=== PATIENT | female | born 1930 | race Caucasian/White ===

== ENCOUNTER 2018-04-27 21:27 | Inpatient (IN) ==
[2018-04-27 21:55] LABS: Bilirubin,Urine Negative (Negative); Blood,Urine Negative (Negative); Clarity,Urine Clear (Clear); Color,Urine Yellow (Yellow); Glucose,Urine (UA) Normal (Normal); Ketones,Urine Negative (Negative); Leukocyte Esterase,Urine Negative (Negative); Nitrite,Urine Negative (Negative); Protein,Urine Trace mg/dL (Neg-Trace); Specific Gravity,Urine 1.013 (1.010-1.025); Urobilinogen,Urine Normal (Normal)
[2018-04-27 21:58] LABS: Bacteria,Urine None Seen per hpf (None-Few); Hyaline Casts,Urine None Seen per lpf (None-Few); RBC,Urine 0-3 per hpf (0-3); Squamous Epithelial Cell,Urine Few per lpf (None-Few); WBC,Urine 0-3 per hpf (0-3)
[2018-04-27 22:11] LABS: Basophils % 0.1 %; Eosinophils # 0.1 K/mcL (0.0-0.6); Eosinophils % 0.3 %; Hematocrit 31.9 % (35.3-44.9); Hemoglobin 10.4 g/dL (11.5-15.4); Immature Granulocytes % 0.5 % (0-4); Lymphocytes # 1.3 K/mcL (0.6-4.6); Mean Corpuscular HGB Conc 32.6 g/dL (31.6-35.5); Mean Corpuscular Hemoglobin 30.3 pg (28.0-33.3); Monocytes # 1.2 K/mcL (0.0-1.3); Monocytes % 6.7 %; Neutrophils # 15.7 K/mcL (1.6-8.9); Platelet Count 478 K/mcL (140-400); Red Blood Count 3.43 M/mcL (3.82-4.97); Red Cell Distribution Width 22.5 % (11.5-14.5); Segmented Neutrophils % 85.4 %
[2018-04-27] MEDS ORDERED: 0.9 % Sodium Chloride 500 ML IVC ONE (22:17)
[2018-04-27 22:18] LABS: INR 1.1; Prothrombin Time 11.9 Seconds (9.4-12.1)
[2018-04-27 22:34] LABS: Alanine Aminotransferase 22 Units/L (7-52); Albumin 3.6 g/dL (3.5-5.7); Albumin/Globulin Ratio 1.2 (1.1-2.2); Alkaline Phosphatase 95 Units/L (34-104); Aspartate Amino Transferase 34 Units/L (13-39); BUN/Creatinine Ratio 31 (6-26); Bilirubin,Total 0.3 mg/dL (0.3-1.0); Blood Urea Nitrogen 23 mg/dL (8-23); Calcium 9.1 mg/dL (8.6-10.3); Carbon Dioxide 30 mEq/L (23-29); Chloride 93 mEq/L (98-107); Creatine Kinase 169 Units/L (30-223); Globulin 2.9 g/dL (2.4-3.5); Glucose 86 mg/dL (70-105); Magnesium 1.7 mg/dL (1.6-2.6); Osmolality,Calculated 271 (280-300); Potassium 3.7 mEq/L (3.5-5.1); Sodium 129 mEq/L (136-145); Total Protein 6.5 g/dL (6.4-8.9); Troponin I 0.03 ng/mL (< 0.04); eGFR For Non-African Americans > 60 (> 60)
--- NOTE | 2018-04-27 23:35 | Emergency Department Note ---
Disposition Clinical Impression: Altered mental status Qualifiers: Altered mental status type: unspecified Qualified Code(s): R41.82 - Altered mental status, unspecified Disposition: Admitted As Inpatient Condition: Fair Altered Mental Status HPI - General Chief Complaint: ED Altered Mental Status Stated Complaint: weakness Time Seen by Provider: 04/27/18 21:34 Source: patient, EMS Mode of arrival: EMS Limitations: altered mental status Nursing Notes Reviewed: Yes Vital Signs Reviewed: Yes - History of Present Illness HPI Narrative: History source: Patient is unable to provide information for this note. Info was gathered from the patient, hospital staff, the patient's chart. History limitations: Patient condition Medications: As per nurses note 87-year-old female presents emergency department for evaluation of weakness and altered mental status. Patient apparently called EMS for weakness however EMS crew noted that they were unable to understand much of what she was saying. I am unable to obtain a full history from this patient, she is awake and crying out in pain stating "help me, help me" she is unable to localize her pain or describe the onset of her symptoms. Patient has a laceration to the right anterior distal lower extremity from a fall within the past 2 weeks. Patient was evaluated at an urgent care after the fall and had repair of a skin tear. Patient has swelling and ecchymosis to the bilateral lower extremities however there is not evidence of significant erythema or purulent discharge from the laceration site. - Related Data Home Medications Medication Instructions Recorded Confirmed Acetaminophen [Arthritis Pain 650 mg PO TID PRN 10/19/17 04/05/18 Relief] Ascorbic Acid [Vitamin C] 1,000 mg PO DAILY 11/19/17 04/05/18 Meloxicam [Mobic] 7.5 mg PO DAILY 02/22/18 04/05/18 Previous Rx's Medication Instructions Recorded Handicap Placard 1 each .ROUTE AD #1 each 03/07/16 Docusate Sodium [Colace] 100 mg PO BID #60 capsule 01/26/17 Polyethylene Glycol 3350 [MiraLAX 1 scoop PO DAILY #510 gm 01/06/18 Powder Bulk 17.9 Oz] Folic Acid 1 mg PO DAILY #30 tablet 01/13/18 Ondansetron HCl [Zofran] 4 mg PO Q8HR PRN #90 tab 01/13/18 Prochlorperazine Maleate 10 mg PO Q8HR PRN #90 tablet 01/13/18 [Compazine] Megestrol Acetate [Megace] 800 mg PO DAILY #200 mls 02/08/18 Sennosides [Senna] 8.6 mg PO BID #60 tablet 02/22/18 Levothyroxine [Synthroid] 125 mcg PO DAILY@0630 #90 tablet 03/04/18 Dexamethasone [Decadron] 4 mg PO BID #36 tab 04/05/18 Amitriptyline HCl 100 mg PO HS #30 tablet 04/20/18 OxyCODONE/APAP 5/325 [Percocet 1 each PO Q6HR PRN 30 Days #120 04/20/18 5/325 MG] tablet diazePAM [Valium] 5 mg PO HS PRN 30 Days #30 tablet 04/20/18 Allergies Allergy/AdvReac Type Severity Reaction Status Date / Time Sulfa (Sulfonamide Allergy Rash Verified 04/08/18 10:48 Antibiotics) All systems ED: reviewed and negative except as stated. Limitations: ROS unobtainable due to patients medical condition Past Medical History - Past Medical History Attestation: Yes The following information was validated with the patient. [facility] Narrative: General: Alert and crying out in pain in the bed Skin: Warm, dry, intact Head: Normocephalic and atraumatic Neck: Supple, trachea midline and no tenderness Cardiovascular: RRR, no murmur, normal perfusion Respiratory: CTAB, no wheezing, cough, or respiratory distress Musculoskeletal: Normal strength, no tenderness, swelling or deformity GI: Soft, nontender, nondistended. Bowel sounds present Neuro: A&O to person, place, time and situation. No focal deficits noted on exam Psychiatric: cooperative and appropriate mood and affect. Medical history: Reports: cancer Surgical history: Reports: coronary bypass (CABG), other Psychiatric history: Reports: anxiety, depression - Social History Smoking Status: Never smoker Smokeless Tobacco Status: No Alcohol use: Reports: none Drug use: Reports: none Physical Exam - General Limitations: no limitations General appearance: alert, in no apparent distress Course Vital Signs Temperature 97.9 F 04/27/18 21:31 Pulse Rate 101 04/27/18 21:31 Respiratory Rate 20 04/27/18 21:31 Blood Pressure 181/85 04/27/18 21:31 O2 Sat by Pulse Oximetry 100 04/27/18 21:31 Temperature 97.9 F 04/27/18 21:31 Pulse Rate 101 04/28/18 00:11 Respiratory Rate 18 04/28/18 00:11 Blood Pressure 176/90 04/28/18 00:11 O2 Sat by Pulse Oximetry 97 04/28/18 00:11 Oxygen Delivery Oxygen Delivery Room Air Altered Mental Status - Medical Records Medical records reviewed: Yes I reviewed the patient's medical records. - Lab Data Lab results reviewed: Yes I reviewed the patient's lab results. Result diagrams: 04/27/18 21:58 04/27/18 21:58 Lab Results 04/27/18 04/27/18 04/27/18 Range/Units 21:45 21:58 21:58 WBC 18.3 H (4.3-11.1) K/mcL RBC 3.43 L (3.82-4.97) M/mcL Hgb 10.4 L (11.5-15.4) g/dL Hct 31.9 L (35.3-44.9) % MCV 93.0 (83.0-100.0) fL MCH 30.3 (28.0-33.3) pg MCHC 32.6 (31.6-35.5) g/dL RDW 22.5 H (11.5-14.5) % Plt Count 478 H (140-400) K/mcL MPV 9.0 L (9.4-12.4) fL Immature Gran % 0.5 (0-4) % Seg Neutrophils % 85.4 % Lymphocytes % 7.0 % Monocytes % 6.7 % Eosinophils % 0.3 % Basophils % 0.1 % Neutrophils # 15.7 H (1.6-8.9) K/mcL Lymphocytes # 1.3 (0.6-4.6) K/mcL Monocytes # 1.2 (0.0-1.3) K/mcL Eosinophils # 0.1 (0.0-0.6) K/mcL Basophils # 0.0 (0.0-0.2) K/mcL PT 11.9 (9.4-12.1) Seconds INR 1.1 Sodium (136-145) mEq/L Potassium (3.5-5.1) mEq/L Chloride (98-107) mEq/L Carbon Dioxide (23-29) mEq/L BUN (8-23) mg/dL Creatinine (0.60-1.20) mg/dL Est GFR ( Amer) (> 60) Est GFR (Non-Af Amer) (> 60) BUN/Creatinine Ratio (6-26) Glucose (70-105) mg/dL Calculated Osmolality (280-300) Lactic Acid (0.5-2.2) mmol/L Calcium (8.6-10.3) mg/dL Magnesium (1.6-2.6) mg/dL Total Bilirubin (0.3-1.0) mg/dL AST (13-39) Units/L ALT (7-52) Units/L Alkaline Phosphatase (34-104) Units/L Creatine Kinase (30-223) Units/L Troponin I (< 0.04) ng/mL Serum Total Protein (6.4-8.9) g/dL Albumin (3.5-5.7) g/dL Globulin (2.4-3.5) g/dL Albumin/Globulin Ratio (1.1-2.2) TSH (0.340-5.600) mcIU/mL Urine Color Yellow (Yellow) Urine Clarity Clear (Clear) Urine pH 6.0 (5.0-8.0) pH Units Ur Specific [place] 1.013 (1.010-1.025) Urine Protein Trace (Neg-Trace) mg/dL Urine Glucose (UA) Normal (Normal) mg/dL Urine Ketones Negative (Negative) mg/dL Urine Blood Negative (Negative) Urine Nitrite Negative (Negative) Urine Bilirubin Negative (Negative) Urine Urobilinogen Normal (Normal) mg/dL Ur Leukocyte Esterase Negative (Negative) Urine Microscopic RBC 0-3 (0-3) per hpf Urine Microscopic WBC 0-3 (0-3) per hpf Ur Squamous Epith Cells Few (None-Few) per lpf Urine Bacteria None Seen (None-Few) per hpf Hyaline Casts None Seen (None-Few) per lpf Ur Culture Indicated? NO (NO) 04/27/18 04/27/18 Range/Units 21:58 21:58 WBC (4.3-11.1) K/mcL RBC (3.82-4.97) M/mcL Hgb (11.5-15.4) g/dL Hct (35.3-44.9) % MCV (83.0-100.0) fL MCH (28.0-33.3) pg MCHC (31.6-35.5) g/dL RDW (11.5-14.5) % Plt Count (140-400) K/mcL MPV (9.4-12.4) fL Immature Gran % (0-4) % Seg Neutrophils % % Lymphocytes % % Monocytes % % Eosinophils % % Basophils % % Neutrophils # (1.6-8.9) K/mcL Lymphocytes # (0.6-4.6) K/mcL Monocytes # (0.0-1.3) K/mcL Eosinophils # (0.0-0.6) K/mcL Basophils # (0.0-0.2) K/mcL PT (9.4-12.1) Seconds INR Sodium 129 L (136-145) mEq/L Potassium 3.7 (3.5-5.1) mEq/L Chloride 93 L (98-107) mEq/L Carbon Dioxide 30 H (23-29) mEq/L BUN 23 (8-23) mg/dL Creatinine 0.74 (0.60-1.20) mg/dL Est GFR ( Amer) > 60 (> 60) Est GFR (Non-Af Amer) > 60 (> 60) BUN/Creatinine Ratio 31 H (6-26) Glucose 86 (70-105) mg/dL Calculated Osmolality 271 L (280-300) Lactic Acid 0.6 (0.5-2.2) mmol/L Calcium 9.1 (8.6-10.3) mg/dL Magnesium 1.7 (1.6-2.6) mg/dL Total Bilirubin 0.3 (0.3-1.0) mg/dL AST 34 (13-39) Units/L ALT 22 (7-52) Units/L Alkaline Phosphatase 95 (34-104) Units/L Creatine Kinase 169 (30-223) Units/L Troponin I 0.03 (< 0.04) ng/mL Serum Total Protein 6.5 (6.4-8.9) g/dL Albumin 3.6 (3.5-5.7) g/dL Globulin 2.9 (2.4-3.5) g/dL Albumin/Globulin Ratio 1.2 (1.1-2.2) TSH 7.311 H (0.340-5.600) mcIU/mL Urine Color (Yellow) Urine Clarity (Clear) Urine pH (5.0-8.0) pH Units Ur Specific [place] (1.010-1.025) Urine Protein (Neg-Trace) mg/dL Urine Glucose (UA) (Normal) mg/dL Urine Ketones (Negative) mg/dL Urine Blood (Negative) Urine Nitrite (Negative) Urine Bilirubin (Negative) Urine Urobilinogen (Normal) mg/dL Ur Leukocyte Esterase (Negative) Urine Microscopic RBC (0-3) per hpf Urine Microscopic WBC (0-3) per hpf Ur Squamous Epith Cells (None-Few) per lpf Urine Bacteria (None-Few) per hpf Hyaline Casts (None-Few) per lpf Ur Culture Indicated? (NO) - Radiology Data Radiology results reviewed: Yes I reviewed the patient's radiology results. - EKG Data EKG attestation: Yes I reviewed and interpreted this EKG. EKG results narrative: EKG showed sinus tachycardia with a rate of 100 without evidence of STEMI. TPA Checklist - LKW: 3-4.5 hrs Add. Warnings/Precautions Patient/family understanding: The patient/family members have been counseled and understood the risk, benefit , and alternatives of treatment.
[2018-04-28 00:14] LABS: Thyroid Stimulating Hormone 7.311 mcIU/mL (0.340-5.600)
[2018-04-28] MEDS ORDERED: Naloxone 0.4 MG/ML INJ IVP PRN (01:59)
[2018-04-28] MEDS ORDERED: diazePAM 5 MG TABLET PO PRN (02:03)
--- NOTE | 2018-04-28 02:27 | Internal Med History&Physical ---
Date of Encounter: 04/28/18 Time of Encounter: 02:16 Internal Medicine - H&P: HPI Chief complaint: pain Admitted From: Home Plans for Post Hospital Care: Home History of present illness: Ms. Bennett is a 87 year old female with hx of metastatic lung cancer on chemotherapy, alzheimers, presents to hospital with cc of pain. Patient called 911 herself, but could not be understood so EMS was dispatched. Patient was brought to [place] ER who report she was altered and only said "help me, help me" . When I evaluated the patient she was alert oriented x3 and answering questions appropriately although tangential at times and calm. Patient reports headache, bilateral shoulder pain, and abdominal pain for the last 2 years. She follows a pain speicalist in [place]. She reports her pain has not worsened. She reports sob, cough, LE swelling. Patient denies fever, chills, fall, double vision, eye pain, ear pain, vertigo, sputum production, sick contacts, chest pain, palpitaitons, N/V/D, hematochezia, melana, dysuria, urinary frequency, LE weakness, numbness, tingling, anxiety, depression. She reports skin tear on LLE after fall few weeks ago that required stiches in march 2018. She drinks 1-2L of tea a day in addition to water. 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 Last treatment was 04/05. Past Med Surg Social Fam HX - Past Medical History Medical history: cancer, dementia, glaucoma, hypertension, osteoporosis, RA, renal disease Additional medical history: FIBROMYALGIA Psychiatric history: anxiety, depression - Past Surgical History Surgical History: coronary bypass (CABG), other Additional surgical history: bowel sx, left kidney removed, - Social History Smoking Status: Never smoker Smokeless Tobacco Status: No Alcohol use: none Drug use: none - Family History Mother History Unknown: Yes Internal Medicine - H&P: Meds Handicap Placard 1 each .ROUTE AD #1 each 03/07/16 [Rx] Docusate Sodium [Colace] 100 mg PO BID #60 capsule 01/26/17 [Rx] Acetaminophen [Arthritis Pain Relief] 650 mg PO TID PRN 10/19/17 [History] Ascorbic Acid [Vitamin C] 1,000 mg PO DAILY 11/19/17 [History] Polyethylene Glycol 3350 [MiraLAX Powder Bulk 17.9 Oz] 1 scoop PO DAILY #510 gm 01/06/18 [Rx] Folic Acid 1 mg PO DAILY #30 tablet 01/13/18 [Rx] Ondansetron HCl [Zofran] 4 mg PO Q8HR PRN #90 tab 01/13/18 [Rx] Prochlorperazine Maleate [Compazine] 10 mg PO Q8HR PRN #90 tablet 01/13/18 [Rx] Megestrol Acetate [Megace] 800 mg PO DAILY #200 mls 02/08/18 [Rx] Meloxicam [Mobic] 7.5 mg PO DAILY 02/22/18 [History] Sennosides [Senna] 8.6 mg PO BID #60 tablet 02/22/18 [Rx] Levothyroxine [Synthroid] 125 mcg PO DAILY@0630 #90 tablet 03/04/18 [Rx] Dexamethasone [Decadron] 4 mg PO BID #36 tab 04/05/18 [Rx] Amitriptyline HCl 100 mg PO HS #30 tablet 04/20/18 [Rx] OxyCODONE/APAP 5/325 [Percocet 5/325 MG] 1 each PO Q6HR PRN 30 Days #120 tablet 04/20/18 [Rx] diazePAM [Valium] 5 mg PO HS PRN 30 Days #30 tablet 04/20/18 [Rx] 3 Allergy/AdvReac Type Severity Reaction Status Date / Time Sulfa (Sulfonamide Allergy Rash Verified 04/08/18 10:48 Antibiotics) All Systems PM: A 10-system review of systems was performed and is negative for pertinent findings except as documented above in the HPI. Review of systems: as per HPI - Constitutional Vitals: Temp Pulse Resp BP Pulse Ox 97.8 F 100 16 176/87 96 04/28/18 01:10 04/28/18 01:10 04/28/18 01:10 04/28/18 01:10 04/28/18 01:10 Exam: General: pleasant, without distress HEENT: Head atraumatic, normocephalic, EOMI, PERRL, absent ear discharge or trauma, Moist Mucous Membranes, uvula midline Neck: nontender to palpation, absent lymphadenopathy, Cardiovascualr: sinus tachycardia no murmur, absent gallops or rubs, 2+ pedal edema, radial pulses 2 out of 4 Lungs: b/l basilar crackles, right lobe expritory wheezing, left upper lobe ronchi, not in respiratory distress Abdomen: Soft nontender, nondistended positive bowel sounds, absent hepatomegaly large midline scar Skin: healing right LE wound (dry with stiches) absent rash, absent open wounds and nodules MSK: absent clubbing, cyanosis, joints without swelling Neuro: Cranial nerves II through XII intact, UE and LE sensation equal bilaterally, UE and LEstrength 4/5, alert oriented 3, Psych: tangential, anxious Internal Med - H&P Results - Labs CBC & Chem 7: 04/27/18 21:58 04/27/18 21:58 - Assessment and plan (1) CHF exacerbation Current Visit: Yes Status: Acute Assessment and plan: acute chf exacerbation 2nd to increased fluid intake patient drinks 1-2L of tea with additional water has b/l LE edema 2+ and bibasilar crackles echocardiogram 03/2016 LVEF 50% with mild diastolic dysfunction patient is not on diuretics at home Plan: IV lasix, strict I/Os, echocardiogram, cardiac diet, BMP Qualifiers: Heart failure type: diastolic Qualified Code(s): I50.33 - Acute on chronic diastolic (congestive) heart failure (2) Hypothyroidism Current Visit: Yes Status: Chronic Assessment and plan: hx of hypothyroidism current ths is 7.311 start 137mcg levothyroxine (increase from home dose) follow up with pcp. Qualifiers: Hypothyroidism type: unspecified Qualified Code(s): E03.9 - Hypothyroidism , unspecified (3) DVT prophylaxis Current Visit: Yes Status: Acute Assessment and plan: heparin sq (4) Adenocarcinoma, lung Current Visit: Yes Status: Acute Assessment and plan: recurrent adenocarcinoma of lung with met to adrenal gland s/p radiation on chemotherapy followup with oncology Qualifiers: Laterality: left Qualified Code(s): C34.92 - Malignant neoplasm of unspecified part of left bronchus or lung (5) Leukocytosis Current Visit: Yes Status: Acute Assessment and plan: WBC 18.3 unclear etiology predominantly neutrophillic no evidence of pna on exam/cxr urinalysis no signs of UTI skin does not show signs of infection afebrile patient was on dexamethasone which was started by Oncology on 04/05 for 18 days blood cultures sent will repeat cbc and hold antibiotics as no source is found. Qualifiers: Leukocytosis type: unspecified Qualified Code(s): D72.829 - Elevated white blood cell count, unspecified - Time Spent With Patient Total time spent is greater than 50% in coordination of care (as documented) at patient's floor/unit and/or counseling patient:
[2018-04-28] MEDS: Furosemide 20 MG/2 ML VIAL IVP SCH ×2 (03:17→18:05)
[2018-04-28 04:55] LABS: Basophils % 0.1 %; Eosinophils # 0.1 K/mcL (0.0-0.6); Eosinophils % 0.7 %; Hematocrit 29.3 % (35.3-44.9); Hemoglobin 9.4 g/dL (11.5-15.4); Immature Granulocytes % 0.4 % (0-4); Lymphocytes # 1.4 K/mcL (0.6-4.6); Lymphocytes % 9.4 %; Mean Corpuscular HGB Conc 32.1 g/dL (31.6-35.5); Mean Corpuscular Hemoglobin 29.8 pg (28.0-33.3); Mean Platelet Volume 9.7 fL (9.4-12.4); Monocytes # 1.1 K/mcL (0.0-1.3); Monocytes % 7.1 %; Neutrophils # 12.2 K/mcL (1.6-8.9); Platelet Count 455 K/mcL (140-400); Red Blood Count 3.15 M/mcL (3.82-4.97); Red Cell Distribution Width 22.5 % (11.5-14.5); Segmented Neutrophils % 82.3 %
[2018-04-28 05:20] LABS: BUN/Creatinine Ratio 31 (6-26); Blood Urea Nitrogen 18 mg/dL (8-23); Calcium 8.7 mg/dL (8.6-10.3); Carbon Dioxide 28 mEq/L (23-29); Chloride 97 mEq/L (98-107); Glucose 80 mg/dL (70-105); Osmolality,Calculated 275 (280-300); Potassium 3.7 mEq/L (3.5-5.1); Sodium 132 mEq/L (136-145); eGFR For Non-African Americans > 60 (> 60)
[2018-04-28] MEDS: *HR* Heparin 5,000 UNIT/ML VIAL SQ SCH ×3 (06:19→20:41)
[2018-04-28] MEDS: Sennosides 8.6 MG TABLET PO SCH ×2 (10:25→20:41)
[2018-04-28] MEDS: Megestrol Acetate 400 MG/10 ML UDC PO SCH (10:25)
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
[2018-04-28] MEDS: *HR* OxyCODONE/APAP 5/325 TABLET PO PRN (15:21)
--- NOTE | 2018-04-28 17:52 | Electrocardiograph Report ---
[address] [place] [address] Test Date: 2018-04-27 Pat Name: Kati Bennett Department: [id number] Room: 3B11 Gender: F Compensation Vice President: : 1930 Requested By: José Miguel Maldonado Order Number: [id number] Reading MD: Jun Angeles Measurements Intervals [place] Rate: 100 P: 96 RI: 159 QRS: 59 QRSD: 89 T: 87 QT: 346 QTc: 447 Interpretive Statements Sinus tachycardia Ventricular premature complex Left ventricular hypertrophy Nonspecific T abnormalities, lateral leads Electronically Signed On 04-28-2018 17:50:36 EDT by Jun Angeles
[2018-04-29] MEDS: *HR* Heparin 5,000 UNIT/ML VIAL SQ SCH ×3 (06:23→21:17)
[2018-04-29 06:28] LABS: Basophils % 0.1 %; Eosinophils # 0.1 K/mcL (0.0-0.6); Hematocrit 30.1 % (35.3-44.9); Hemoglobin 9.6 g/dL (11.5-15.4); Immature Granulocytes % 0.4 % (0-4); Lymphocytes % 10.2 %; Mean Corpuscular HGB Conc 31.9 g/dL (31.6-35.5); Mean Corpuscular Hemoglobin 29.8 pg (28.0-33.3); Mean Corpuscular Volume 93.5 fL (83.0-100.0); Mean Platelet Volume 9.3 fL (9.4-12.4); Monocytes # 0.7 K/mcL (0.0-1.3); Monocytes % 7.6 %; Neutrophils # 7.8 K/mcL (1.6-8.9); Platelet Count 415 K/mcL (140-400); Red Blood Count 3.22 M/mcL (3.82-4.97); Red Cell Distribution Width 22.9 % (11.5-14.5); Segmented Neutrophils % 80.7 %
[2018-04-29 06:46] LABS: BUN/Creatinine Ratio 34 (6-26); Blood Urea Nitrogen 21 mg/dL (8-23); Calcium 8.4 mg/dL (8.6-10.3); Carbon Dioxide 30 mEq/L (23-29); Chloride 97 mEq/L (98-107); Glucose 88 mg/dL (70-105); Osmolality,Calculated 278 (280-300); Potassium 3.9 mEq/L (3.5-5.1); Sodium 133 mEq/L (136-145); eGFR For Non-African Americans > 60 (> 60)
--- NOTE | 2018-04-29 07:57 | Internal Med Progress Note ---
Hospitalist Progress Note - Encounter Date of Encounter: 04/29/18 Time of Encounter: 07:55 - Subjective Interval History: Patient seen and examined at bedside, She voices concern about going home to her cat. She is calling on the phone but she can't remeber numbers. PT/OT recommending SNF placement. inpatient services director consulted. - Exam Vitals: Temp Pulse Resp BP Pulse Ox 97.6 F 82 16 131/75 94 04/29/18 07:11 04/29/18 07:11 04/29/18 07:11 04/29/18 07:11 04/29/18 07:11 Exam: General: pleasant, without distress oreiented to name and place HEENT: Head atraumatic, normocephalic, EOMI, PERRL, absent ear discharge or trauma, Moist Mucous Membranes, uvula midline Neck: nontender to palpation, absent lymphadenopathy, Cardiovascualr: sinus tachycardia no murmur, absent gallops or rubs, 2+ pedal edema, radial pulses 2 out of 4 Lungs: b/l basilar crackles, right lobe expritory wheezing, left upper lobe ronchi, not in respiratory distress Abdomen: Soft nontender, nondistended positive bowel sounds, absent hepatomegaly large midline scar Skin: healing right LE wound (dry with stiches) absent rash, absent open wounds and nodules MSK: absent clubbing, cyanosis, joints without swelling Neuro: Cranial nerves II through XII intact, UE and LE sensation equal bilaterally, UE and LEstrength 4/5, alert oriented 3, Psych: tangential, anxious - Assessment and Plan (1) CHF exacerbation Current Visit: Yes Status: Acute Assessment and Plan: acute chf exacerbation 2nd to increased fluid intake patient drinks 1-2L of tea with additional water has b/l LE edema 2+ and bibasilar crackles on presentation echocardiogram 03/2016 LVEF 50% with mild diastolic dysfunction patient is not on diuretics at home Cont lasix fluid restriction monitor I/O daily weights (2) Hypothyroidism Current Visit: Yes Status: Chronic Assessment and Plan: hx of hypothyroidism current ths is 7.311 start 137mcg levothyroxine (increase from home dose) follow up with pcp. (3) DVT prophylaxis Current Visit: Yes Status: Acute Assessment and Plan: heparin sq (4) Adenocarcinoma, lung Current Visit: Yes Status: Acute Assessment and Plan: recurrent adenocarcinoma of lung with met to adrenal gland s/p radiation on chemotherapy followup with oncology consult as needed (5) Leukocytosis Current Visit: Yes Status: Acute Assessment and Plan: WBC 18.3 unclear etiology predominantly neutrophillic no evidence of pna on exam/cxr urinalysis no signs of UTI skin does not show signs of infection afebrile patient was on dexamethasone which was started by Oncology on 04/05 for 18 days blood cultures sent 03/29 suspect this is rt steroid back to baseline today (6) Frequent falls Current Visit: Yes Status: Acute Assessment and Plan: Patient has had frequent falls, she has old healing skin tear - sutures were to be removed week ago however they were still intact on presentation. She has a bruise above her left eyebrow which is healing, from previous fall. sShe lives alone and appears very thin. Socical services contacted- PT/OT recommending ECF - Time Spent with Patient Total time spent is greater than 50% in coordination of care (as documented) at patient's floor/unit and/or counseling patient: Internal Medicine: Result - Labs CBC & Chem 7: 04/29/18 06:14 04/29/18 06:14 Labs: Short CBC 04/29/18 Range/Units 06:14 WBC 9.6 (4.3-11.1) K/mcL Hgb 9.6 L (11.5-15.4) g/dL Hct 30.1 L (35.3-44.9) % Plt Count 415 H (140-400) K/mcL Neutrophils # 7.8 (1.6-8.9) K/mcL BMP 04/29/18 06:14 Sodium 133 L Potassium 3.9 Chloride 97 L Carbon Dioxide 30 H BUN 21 Creatinine 0.62 Glucose 88 Calcium 8.4 L - ABG Interpretation ABG results: PT/INR, D-dimer PT 11.9 Seconds (9.4-12.1) 04/27/18 21:58 Consult Discharge Plan - Plan Referrals: Zaira Spaulding, [employer] [Primary Care Provider] - (1) CHF exacerbation Qualifiers: Heart failure type: diastolic Qualified Code(s): I50.33 - Acute on chronic diastolic (congestive) heart failure (2) Hypothyroidism Qualifiers: Hypothyroidism type: unspecified Qualified Code(s): E03.9 - Hypothyroidism, unspecified (4) Adenocarcinoma, lung Qualifiers: Laterality: left Qualified Code(s): C34.92 - Malignant neoplasm of unspecified part of left bronchus or lung (5) Leukocytosis Qualifiers: Leukocytosis type: unspecified Qualified Code(s): D72.829 - Elevated white blood cell count, unspecified
[2018-04-29] MEDS: *HR* OxyCODONE/APAP 5/325 TABLET PO PRN (08:27)
[2018-04-29] MEDS: Megestrol Acetate 400 MG/10 ML UDC PO SCH (08:28)
[2018-04-29] MEDS: Sennosides 8.6 MG TABLET PO SCH ×2 (08:28→21:17)
[2018-04-29] MEDS: Furosemide 20 MG/2 ML VIAL IVP SCH ×2 (08:29→18:23)
[2018-04-29] MEDS ORDERED: diazePAM 2 MG TABLET PO ONE (15:45)
[2018-04-29] MEDS: Silvasorb 44.4 ML TUBE TP SCH (16:25)
[2018-04-30] MEDS: *HR* OxyCODONE/APAP 5/325 TABLET PO PRN ×2 (00:50→09:03)
[2018-04-30 05:45] LABS: Basophils % 0.1 %; Eosinophils # 0.1 K/mcL (0.0-0.6); Eosinophils % 0.9 %; Hematocrit 31.1 % (35.3-44.9); Hemoglobin 9.9 g/dL (11.5-15.4); Immature Granulocytes % 0.6 % (0-4); Lymphocytes # 1.1 K/mcL (0.6-4.6); Mean Corpuscular HGB Conc 31.8 g/dL (31.6-35.5); Mean Corpuscular Hemoglobin 29.8 pg (28.0-33.3); Mean Corpuscular Volume 93.7 fL (83.0-100.0); Mean Platelet Volume 9.5 fL (9.4-12.4); Monocytes # 0.8 K/mcL (0.0-1.3); Monocytes % 5.4 %; Neutrophils # 11.9 K/mcL (1.6-8.9); Platelet Count 423 K/mcL (140-400); Red Blood Count 3.32 M/mcL (3.82-4.97); Red Cell Distribution Width 22.3 % (11.5-14.5)
[2018-04-30 06:05] LABS: BUN/Creatinine Ratio 35 (6-26); Blood Urea Nitrogen 29 mg/dL (8-23); Calcium 9.1 mg/dL (8.6-10.3); Carbon Dioxide 32 mEq/L (23-29); Chloride 90 mEq/L (98-107); Glucose 96 mg/dL (70-105); Osmolality,Calculated 276 (280-300); Potassium 3.7 mEq/L (3.5-5.1); Sodium 130 mEq/L (136-145); eGFR For Non-African Americans > 60 (> 60)
[2018-04-30] MEDS: *HR* Heparin 5,000 UNIT/ML VIAL SQ SCH ×3 (06:09→20:26)
[2018-04-30] MEDS: Megestrol Acetate 400 MG/10 ML UDC PO SCH (09:03)
[2018-04-30] MEDS: Sennosides 8.6 MG TABLET PO SCH ×2 (09:04→20:28)
[2018-04-30] MEDS: Furosemide 20 MG/2 ML VIAL IVP SCH (09:04)
[2018-04-30] MEDS: Silvasorb 44.4 ML TUBE TP SCH (09:08)
--- NOTE | 2018-04-30 15:12 | Internal Med Progress Note ---
Hospitalist Progress Note - Encounter Date of Encounter: 04/30/18 Time of Encounter: 10:00 - Subjective Interval History: Patient seen and examined at bedside, she is sitting up at bedside patient verbalizing concerns about going home. Nursing staff reports patient was confused overnight was standing in front the window bathing, she thought she was in front of a mirror. Patient denies any pain or discomfort at this time - Exam Vitals: Temp Pulse Resp BP Pulse Ox 97.5 F L 76 17 109/70 98 04/30/18 11:29 04/30/18 11:29 04/30/18 11:29 04/30/18 11:29 04/30/18 11:29 Exam: General: pleasant, without distress oreiented to name and place HEENT: Head atraumatic, normocephalic, EOMI, PERRL, absent ear discharge or trauma, Moist Mucous Membranes, uvula midline Neck: nontender to palpation, absent lymphadenopathy, Cardiovascualr: sinus tachycardia no murmur, absent gallops or rubs, 2+ pedal edema, radial pulses 2 out of 4 Lungs: b/l basilar crackles, right lobe expritory wheezing, left upper lobe ronchi, not in respiratory distress Abdomen: Soft nontender, nondistended positive bowel sounds, absent hepatomegaly large midline scar Skin: right LE wound open, moist with softening skin, appears to have some pus MSK: absent clubbing, cyanosis, joints without swelling Neuro: Cranial nerves II through XII intact, UE and LE sensation equal bilaterally, UE and LEstrength 4/5, alert oriented 3, Psych: tangential, anxious - Assessment and Plan (1) CHF exacerbation Current Visit: Yes Status: Acute Assessment and Plan: acute chf exacerbation 2nd to increased fluid intake patient drinks 1-2L of tea with additional water has b/l LE edema 2+-we will check albumin level Lung sounds have improved no crackles noted echocardiogram 03/2016 LVEF 50% with mild diastolic dysfunction patient is not on diuretics at home We will transition to oral Lasix continue with fluid restriction as well as daily weights (2) Hypothyroidism Current Visit: Yes Status: Chronic Assessment and Plan: hx of hypothyroidism current ths is 7.311 start 137mcg levothyroxine (increase from home dose) follow up with pcp. 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 We will obtain wound culture and started on antibiotics (6) Frequent falls Current Visit: Yes Status: Acute Assessment and Plan: Patient has had frequent falls, she has old healing skin tear - sutures were to be removed week ago however they were still intact on presentation. She has a bruise above her left eyebrow which is healing, from previous fall. sShe lives alone and appears very thin. Socical services contacted- PT/OT recommending ECF (7) Protein calorie malnutrition Current Visit: Yes Status: Acute Assessment and Plan: Patient has metastatic lung cancer she is very frail she does consume approximately 1-2 L of tea daily as well as water. She is on Megace at home we have resumed here. Dietary has been consulted continue with supplements We will check albumin (8) Wound of right lower extremity Current Visit: Yes Status: Acute Assessment and Plan: 1 patient had a fall in March of this year she went to urgent care and had 22 sutures placed to a skin tear to right lower leg. She did not have sutures removed and have been in for approximately a month. Sutures have been removed and now wound is open red and appears to have pus. Previous tib-fib x-ray demonstrated soft tissue edema without acute bony abnormality We will obtain wound culture-we will start on vancomycin and Zosyn pharmacy to renally dose - Time Spent with Patient Total time spent is greater than 50% in coordination of care (as documented) at patient's floor/unit and/or counseling patient: Internal Medicine: Result - Labs CBC & Chem 7: 04/30/18 03:51 04/30/18 03:51 Labs: Short CBC 04/30/18 Range/Units 03:51 WBC 14.1 H (4.3-11.1) K/mcL Hgb 9.9 L (11.5-15.4) g/dL Hct 31.1 L (35.3-44.9) % Plt Count 423 H (140-400) K/mcL Neutrophils # 11.9 H (1.6-8.9) K/mcL BMP 04/30/18 03:51 Sodium 130 L Potassium 3.7 Chloride 90 L Carbon Dioxide 32 H BUN 29 H Creatinine 0.84 Glucose 96 Calcium 9.1 - ABG Interpretation ABG results: PT/INR, D-dimer PT 11.9 Seconds (9.4-12.1) 04/27/18 21:58 Consult Discharge Plan - Plan Referrals: Zaira Spaulding CNP [Primary Care Provider] - (Your appointment has been requested. Our offices will call you with a follow up appointment time and date. ) (1) CHF exacerbation Qualifiers: Heart failure type: diastolic Qualified Code(s): I50.33 - Acute on chronic diastolic (congestive) heart failure (2) Hypothyroidism Qualifiers: Hypothyroidism type: unspecified Qualified Code(s): E03.9 - Hypothyroidism, unspecified (4) Adenocarcinoma, lung Qualifiers: Laterality: left Qualified Code(s): C34.92 - Malignant neoplasm of unspecified part of left bronchus or lung (5) Leukocytosis Qualifiers: Leukocytosis type: unspecified Qualified Code(s): D72.829 - Elevated white blood cell count, unspecified (7) Protein calorie malnutrition Qualifiers: Protein-calorie malnutrition severity: moderate Qualified Code(s): E44.0 - Moderate protein-calorie malnutrition (8) Wound of right lower extremity Qualifiers: Encounter type: initial encounter Qualified Code(s): S81.801A - Unspecified open wound, right lower leg, initial encounter
--- NOTE | 2018-04-30 17:22 | Consult Note ---
Date of Encounter: 04/30/18 Time of Encounter: 16:15 Assessment & Recommendation (1) Dementia arising in the senium and presenium Current visit: No Status: Chronic History of Present Illness Patient: new to practice Requesting Physician: Tim Belle MD Reason for consult: decision making capacity History of present illness: Ms. Bennett is a 87 year old female The patient was seen for an initial evaluation for weakness. During Hospital stay the patient expressed a desire to go to her home to take care of her cat. The patient had had a fall and had a bruise over the right eye. had not a CAT scan and an MRI. These revealed significant volume loss cortical atrophy. 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 On the interview the patient was able to talk and carry on a conversation. She was able to discuss some current events and list some things she was able to talk about remote events however on several areas of confrontational testing she had extremely poor short-term memory and immediate memory. She would cover up by the saying that she had not told us her she was not paying attention. The patient expressed a desire to go home. CC: Tim Belle MD Past Med Surg Social Fam HX - Past Medical History Source: patient Medical history: cancer, dementia, glaucoma, hypertension, osteoporosis, RA, renal disease - Past Psychiatric History Psychiatric history: Reports: other Family psychiatric history: Unknown Family History of Suicide: Unknown - Past Surgical History Surgical History: coronary bypass (CABG), other - Social History Smoking Status: Never smoker Smokeless Tobacco Status: No Alcohol use: none Drug use: none Occupational status: retired Current living situation: Home - Independent Activity Level: Independent ambulation Recent Out of Country Travel Within the Last 8 Weeks: No Exposure or Possible Exposure to Illness During Travel: No - Family History Mother History Unknown: Yes Medications & Allergies Docusate Sodium [Colace] 100 mg PO BID #60 capsule 01/26/17 [Rx] Acetaminophen [Arthritis Pain Relief] 650 mg PO TID PRN 10/19/17 [History] Ascorbic Acid [Vitamin C] 1,000 mg PO DAILY 11/19/17 [History] Meloxicam [Mobic] 7.5 mg PO BID 02/22/18 [History] Levothyroxine [Synthroid] 125 mcg PO DAILY@0630 #90 tablet 03/04/18 [Rx] Dexamethasone [Decadron] 4 mg PO BID #36 tab 04/05/18 [Rx] Amitriptyline HCl 100 mg PO HS #30 tablet 04/20/18 [Rx] OxyCODONE/APAP 5/325 [Percocet 5/325 MG] 1 each PO Q6HR PRN 30 Days #120 tablet 04/20/18 [Rx] diazePAM [Valium] 5 mg PO HS PRN 30 Days #30 tablet 04/20/18 [Rx] 3 Allergy/AdvReac Type Severity Reaction Status Date / Time Sulfa (Sulfonamide Allergy Rash Verified 04/08/18 10:48 Antibiotics) Psychiatry Exam - Constitutional Vitals: Temp Pulse Resp BP Pulse Ox 98.4 F 83 16 104/51 97 04/30/18 16:18 04/30/18 16:18 04/30/18 16:18 04/30/18 16:18 04/30/18 16:18 General appearance: age & developmentally appropriate, well-groomed, well- nourished - Musculoskeletal Gait: slow Station: relaxed Strength & Tone: normal for patient - Psychiatric Patient Orientation: Yes Person, Yes Time, Yes Place Level of alertness: Alert Behavior: calm, cooperative Psychomotor activity: Slowed Eye Contact: Maintains Eye Contact Mood Description: Euthymic/stable Affect description: congruent with mood, full range Speech Volume: Normal Speech pattern: normal rate, normal rhythm, normal tone, fluent, spontaneous Language & Vocabulary: consistent with education Thought Process: Linear, Goal Oriented Thought Content: No Suicidal ideation, No Homicidal ideation, No Overt delusions Perceptual Disturbances: No Auditory hallucinations, No Visual hallucinations Attention Span Ability: Capable of Focused Attention, Capable of Sustained Attention Memory Description: Immediate Impaired, Recent Impaired, Remote Intact Patient Reliability: Reliable Historian Fund of knowledge: Yes abstraction ability, Yes average, Yes aware of current events Intelligence Estimate: Average Judgment: Limited Insight: Minimal Results - Labs Labs: Laboratory Last Values WBC 14.1 K/mcL (4.3-11.1) H 04/30/18 03:51 RBC 3.32 M/mcL (3.82-4.97) L 04/30/18 03:51 Hgb 9.9 g/dL (11.5-15.4) L 04/30/18 03:51 Hct 31.1 % (35.3-44.9) L 04/30/18 03:51 MCV 93.7 fL (83.0-100.0) 04/30/18 03:51 MCH 29.8 pg (28.0-33.3) 04/30/18 03:51 MCHC 31.8 g/dL (31.6-35.5) 04/30/18 03:51 RDW 22.3 % (11.5-14.5) H 04/30/18 03:51 Plt Count 423 K/mcL (140-400) H 04/30/18 03:51 MPV 9.5 fL (9.4-12.4) 04/30/18 03:51 Immature Gran % 0.6 % (0-4) 04/30/18 03:51 Seg Neutrophils % 85.0 % 04/30/18 03:51 Lymphocytes % 8.0 % 04/30/18 03:51 Monocytes % 5.4 % 04/30/18 03:51 Eosinophils % 0.9 % 04/30/18 03:51 Basophils % 0.1 % 04/30/18 03:51 Neutrophils # 11.9 K/mcL (1.6-8.9) H 04/30/18 03:51 Lymphocytes # 1.1 K/mcL (0.6-4.6) 04/30/18 03:51 Monocytes # 0.8 K/mcL (0.0-1.3) 04/30/18 03:51 Eosinophils # 0.1 K/mcL (0.0-0.6) 04/30/18 03:51 Basophils # 0.0 K/mcL (0.0-0.2) 04/30/18 03:51 PT 11.9 Seconds (9.4-12.1) 04/27/18 21:58 INR 1.1 04/27/18 21:58 Sodium 130 mEq/L (136-145) L 04/30/18 03:51 Potassium 3.7 mEq/L (3.5-5.1) 04/30/18 03:51 Chloride 90 mEq/L (98-107) L 04/30/18 03:51 Carbon Dioxide 32 mEq/L (23-29) H 04/30/18 03:51 BUN 29 mg/dL (8-23) H 04/30/18 03:51 Creatinine 0.84 mg/dL (0.60-1.20) 04/30/18 03:51 Est GFR ( Amer) > 60 (> 60) 04/30/18 03:51 Est GFR (Non-Af Amer) > 60 (> 60) 04/30/18 03:51 BUN/Creatinine Ratio 35 (6-26) H 04/30/18 03:51 Glucose 96 mg/dL (70-105) 04/30/18 03:51 Calculated Osmolality 276 (280-300) L 04/30/18 03:51 Lactic Acid 0.6 mmol/L (0.5-2.2) 04/27/18 21:58 Calcium 9.1 mg/dL (8.6-10.3) 04/30/18 03:51 Magnesium 1.7 mg/dL (1.6-2.6) 04/27/18 21:58 Total Bilirubin 0.3 mg/dL (0.3-1.0) 04/27/18 21:58 AST 34 Units/L (13-39) 04/27/18 21:58 ALT 22 Units/L (7-52) 04/27/18 21:58 Alkaline Phosphatase 95 Units/L (34-104) 04/27/18 21:58 Creatine Kinase 169 Units/L (30-223) 04/27/18 21:58 Troponin I 0.03 ng/mL (< 0.04) 04/27/18 21:58 Serum Total Protein 6.5 g/dL (6.4-8.9) 04/27/18 21:58 Albumin 3.6 g/dL (3.5-5.7) 04/27/18 21:58 Globulin 2.9 g/dL (2.4-3.5) 04/27/18 21:58 Albumin/Globulin Ratio 1.2 (1.1-2.2) 04/27/18 21:58 TSH 7.311 mcIU/mL (0.340-5.600) H 04/27/18 21:58 Urine Color Yellow (Yellow) 04/27/18 21:45 Urine Clarity Clear (Clear) 04/27/18 21:45 Urine pH 6.0 pH Units (5.0-8.0) 04/27/18 21:45 Ur Specific [place] 1.013 (1.010-1.025) 04/27/18 21:45 Urine Protein Trace mg/dL (Neg-Trace) 04/27/18 21:45 Urine Glucose (UA) Normal mg/dL (Normal) 04/27/18 21:45 Urine Ketones Negative mg/dL (Negative) 04/27/18 21:45 Urine Blood Negative (Negative) 04/27/18 21:45 Urine Nitrite Negative (Negative) 04/27/18 21:45 Urine Bilirubin Negative (Negative) 04/27/18 21:45 Urine Urobilinogen Normal mg/dL (Normal) 04/27/18 21:45 Ur Leukocyte Esterase Negative (Negative) 04/27/18 21:45 Urine Microscopic RBC 0-3 per hpf (0-3) 04/27/18 21:45 Urine Microscopic WBC 0-3 per hpf (0-3) 04/27/18 21:45 Ur Squamous Epith Cells Few per lpf (None-Few) 04/27/18 21:45 Urine Bacteria None Seen per hpf (None-Few) 04/27/18 21:45 Hyaline Casts None Seen per lpf (None-Few) 04/27/18 21:45 Ur Culture Indicated? NO (NO) 04/27/18 21:45 Consult Discharge Plan - Plan Referrals: Zaira Spaulding, [employer] [Primary Care Provider] - (Your appointment has been requested. Our offices will call you with a follow up appointment time and date. )
[2018-04-30] MEDS: Piperacillin/Tazobactam 3.375 GM in 0.9 % Sodium Chloride Mini Bag 100 ML IVPB SCH (18:25)
[2018-05-01] MEDS: Piperacillin/Tazobactam 3.375 GM in 0.9 % Sodium Chloride Mini Bag 100 ML IVPB SCH ×3 (01:04→20:19)
[2018-05-01 05:26] LABS: Basophils % 0.2 %; Eosinophils # 0.1 K/mcL (0.0-0.6); Eosinophils % 1.3 %; Hematocrit 25.6 % (35.3-44.9); Immature Granulocytes % 0.4 % (0-4); Lymphocytes # 0.8 K/mcL (0.6-4.6); Lymphocytes % 7.4 %; Mean Corpuscular HGB Conc 31.6 g/dL (31.6-35.5); Mean Corpuscular Hemoglobin 29.9 pg (28.0-33.3); Mean Corpuscular Volume 94.5 fL (83.0-100.0); Mean Platelet Volume 10.4 fL (9.4-12.4); Monocytes # 0.6 K/mcL (0.0-1.3); Platelet Count 249 K/mcL (140-400); Red Blood Count 2.71 M/mcL (3.82-4.97); Red Cell Distribution Width 22.2 % (11.5-14.5); Segmented Neutrophils % 84.7 %
[2018-05-01 05:45] LABS: BUN/Creatinine Ratio 35 (6-26); Blood Urea Nitrogen 25 mg/dL (8-23); Calcium 8.2 mg/dL (8.6-10.3); Carbon Dioxide 26 mEq/L (23-29); Chloride 96 mEq/L (98-107); Glucose 97 mg/dL (70-105); Osmolality,Calculated 272 (280-300); Potassium 4.5 mEq/L (3.5-5.1); Sodium 129 mEq/L (136-145); eGFR For Non-African Americans > 60 (> 60)
[2018-05-01 05:47] LABS: Hemoglobin 8.1 g/dL (11.5-15.4); Neutrophils # 8.7 K/mcL (1.6-8.9)
[2018-05-01] MEDS: *HR* OxyCODONE/APAP 5/325 TABLET PO PRN (06:02)
[2018-05-01] MEDS: *HR* Heparin 5,000 UNIT/ML VIAL SQ SCH ×3 (06:03→20:45)
[2018-05-01 06:17] LABS: Platelet Estimate Normal (Normal)
[2018-05-01 06:18] LABS: Anisocytosis 1+ (Not Present)
[2018-05-01] MEDS: Megestrol Acetate 400 MG/10 ML UDC PO SCH (08:16)
[2018-05-01] MEDS: Sennosides 8.6 MG TABLET PO SCH ×2 (08:17→20:17)
[2018-05-01] MEDS ORDERED: Furosemide 40 MG TABLET PO SCH (09:00)
--- NOTE | 2018-05-01 09:15 | Internal Med Progress Note ---
Hospitalist Progress Note - Encounter Date of Encounter: 05/01/18 Time of Encounter: 09:12 - Subjective Interval History: Patient seen and examined at bedside, she is sitting up in bed eating breakfast. She denies any pain or discomfort at this time. She states that her leg feels better. Asking when she can go home - Exam Vitals: Temp Pulse Resp BP Pulse Ox 98.0 F 96 16 119/72 94 05/01/18 07:38 05/01/18 07:38 05/01/18 07:38 05/01/18 07:38 05/01/18 07:38 Exam: General: pleasant, without distress oreiented to name and place HEENT: Head atraumatic, normocephalic, EOMI, PERRL, absent ear discharge or trauma, Moist Mucous Membranes, uvula midline Neck: nontender to palpation, absent lymphadenopathy, Cardiovascualr: sinus tachycardia no murmur, absent gallops or rubs, 2+ pedal edema, radial pulses 2 out of 4 Lungs: b/l basilar crackles, right lobe expritory wheezing, left upper lobe ronchi, not in respiratory distress Abdomen: Soft nontender, nondistended positive bowel sounds, absent hepatomegaly large midline scar Skin: right LE wound open, moist with softening skin, appears to have some pus MSK: absent clubbing, cyanosis, joints without swelling Neuro: Cranial nerves II through XII intact, UE and LE sensation equal bilaterally, UE and LEstrength 4/5, alert oriented 3, Psych: tangential, anxious - Assessment and Plan (1) CHF exacerbation Current Visit: Yes Status: Acute Assessment and Plan: acute chf exacerbation 2nd to increased fluid intake patient drinks 1-2L of tea with additional water has b/l LE edema 2+-we will check albumin level- which is low could also be contributing to lower extremity swelling Lung sounds have improved no crackles noted echocardiogram 03/2016 LVEF 50% with mild diastolic dysfunction patient is not on diuretics at home Much improved- lower extremity swelling improved no crackles We will continue oral Lasix, continue with fluid restriction as well as daily weights (2) Hypothyroidism Current Visit: Yes Status: Chronic Assessment and Plan: hx of hypothyroidism current ths is 7.311 start 137mcg levothyroxine (increase from home dose) follow up with pcp. 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 We will obtain wound culture and started on antibiotics 05/01 White count back to baseline much improved to day, leg wound appears less red - no fever wound culture obtained awaiting results (6) Frequent falls Current Visit: Yes Status: Acute Assessment and Plan: Patient has had frequent falls, she has old healing skin tear - sutures were to be removed week ago however they were still intact on presentation. She has a bruise above her left eyebrow which is healing, from previous fall. sShe lives alone and appears very thin. Socical services contacted- PT/OT recommending ECF (7) Protein calorie malnutrition Current Visit: Yes Status: Acute Assessment and Plan: Patient has metastatic lung cancer she is very frail she does consume approximately 1-2 L of tea daily as well as water. She is on Megace at home we have resumed here. Dietary has been consulted continue with supplements albumin-low (8) Wound of right lower extremity Current Visit: Yes Status: Acute Assessment and Plan: 1 patient had a fall in March of this year she went to urgent care and had 22 sutures placed to a skin tear to right lower leg. She did not have sutures removed and have been in for approximately a month. Sutures have been removed and now wound is open red and appears to have pus. Previous tib-fib x-ray demonstrated soft tissue edema without acute bony abnormality We will obtain wound culture-we will start on vancomycin and Zosyn pharmacy to renally dose 05/01 white count improved , wound less red today, cont with dressing changes, awaiting wound culture (9) Anemia Current Visit: Yes Status: Acute Assessment and Plan: 1 She hahs ahd a drop in Hgb no jeancarlos bleeding noted. Wew ill obtain stool for occult blood Anemia workup monitor H/H (10) Dementia Current Visit: Yes Status: Acute Assessment and Plan: 1 Patient was seen by psychiatry and appreciate their recommendations.- Based upon psych assessment "This patient is not competent for medical purposes regarding discharge by herself. She may benefit from 1 a friend or next of kin who could help in assisting her with decision making" She is high risk for falls and is malnourished- however the later maybe more rt chemo - She does live home alone with little help. I have not seen any family during this admission, as well as nursing reports no visitors. We will contact family, and set up meeting to discuss discharge planning . 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 R kidney -complex right adrenal lesion can be seen with a necrotic center measuring 3 x 2.7 cm. This is likely metastatic in nature. Currently renal function stable We will monitor closely (12) Discharge planning issues Current Visit: Yes Status: Acute Assessment and Plan: 1 Dt patient dementia- psych consulted -This patient is not competent for medical purposes regarding discharge by herself. She may benefit from 1 a friend or next of kin who could help in assisting her with decision making SHe will require SNF/ECF placement. will nee to address on Thursday with social and human services assistant - Time Spent with Patient Total time spent is greater than 50% in coordination of care (as documented) at patient's floor/unit and/or counseling patient: Internal Medicine: Result - Labs CBC & Chem 7: 05/01/18 03:47 05/01/18 03:47 Labs: Short CBC 05/01/18 Range/Units 03:47 WBC 10.3 (4.3-11.1) K/mcL Hgb 8.1 L D (11.5-15.4) g/dL Hct 25.6 L (35.3-44.9) % Plt Count 249 (140-400) K/mcL Neutrophils # 8.7 (1.6-8.9) K/mcL BMP 05/01/18 03:47 Sodium 129 L Potassium 4.5 Chloride 96 L Carbon Dioxide 26 BUN 25 H Creatinine 0.71 Glucose 97 Calcium 8.2 L Liver Function 05/01/18 Range/Units 03:47 Albumin 2.8 L (3.5-5.7) g/dL - ABG Interpretation ABG results: PT/INR, D-dimer PT 11.9 Seconds (9.4-12.1) 04/27/18 21:58 Consult Discharge Plan - Plan Referrals: Zaira Spaulding, [employer]ER [Primary Care Provider] - (Your appointment has been requested. Our offices will call you with a follow up appointment time and date. ) (1) CHF exacerbation Qualifiers: Heart failure type: diastolic Qualified Code(s): I50.33 - Acute on chronic diastolic (congestive) heart failure (2) Hypothyroidism Qualifiers: Hypothyroidism type: unspecified Qualified Code(s): E03.9 - Hypothyroidism, unspecified (4) Adenocarcinoma, lung Qualifiers: Laterality: left Qualified Code(s): C34.92 - Malignant neoplasm of unspecified part of left bronchus or lung (5) Leukocytosis Qualifiers: Leukocytosis type: unspecified Qualified Code(s): D72.829 - Elevated white blood cell count, unspecified (7) Protein calorie malnutrition Qualifiers: Protein-calorie malnutrition severity: moderate Qualified Code(s): E44.0 - Moderate protein-calorie malnutrition (8) Wound of right lower extremity Qualifiers: Encounter type: initial encounter Qualified Code(s): S81.801A - Unspecified open wound, right lower leg, initial encounter (9) Anemia Qualifiers: Anemia type: unspecified type Qualified Code(s): D64.9 - Anemia, unspecified (10) Dementia Qualifiers: Dementia type: unspecified type Dementia behavioral disturbance: without behavioral disturbance Qualified Code(s): F03.90 - Unspecified dementia without behavioral disturbance
[2018-05-01] MEDS: Silvasorb 44.4 ML TUBE TP SCH (14:54)
[2018-05-02] MEDS: *HR* Heparin 5,000 UNIT/ML VIAL SQ SCH ×3 (05:00→20:24)
[2018-05-02] MEDS: Piperacillin/Tazobactam 3.375 GM in 0.9 % Sodium Chloride Mini Bag 100 ML IVPB SCH ×3 (05:37→17:00)
[2018-05-02 06:51] LABS: Basophils % 0.1 %; Eosinophils # 0.1 K/mcL (0.0-0.6); Eosinophils % 1.5 %; Hematocrit 26.1 % (35.3-44.9); Hemoglobin 8.5 g/dL (11.5-15.4); Immature Granulocytes % 0.4 % (0-4); Immature Platelets 2.9 % (1.1-6.1); Immature Reticulocyte % 7.9 % (11.0-38.0); Lymphocytes % 11.3 %; Mean Corpuscular HGB Conc 32.6 g/dL (31.6-35.5); Mean Corpuscular Hemoglobin 31.3 pg (28.0-33.3); Mean Platelet Volume 10.4 fL (9.4-12.4); Monocytes # 0.7 K/mcL (0.0-1.3); Monocytes % 7.5 %; Neutrophils # 7.1 K/mcL (1.6-8.9); Platelet Count 274 K/mcL (140-400); Red Blood Count 2.72 M/mcL (3.82-4.97); Red Cell Distribution Width 21.9 % (11.5-14.5); Retculocyte # 0.04 M/mcL (0.05-0.10); Reticulocyte % 1.6 % (1.6-2.8); Segmented Neutrophils % 79.2 %
[2018-05-02 07:04] LABS: % Iron Saturation 12 % (15-50); BUN/Creatinine Ratio 30 (6-26); Blood Urea Nitrogen 20 mg/dL (8-23); Calcium 8.2 mg/dL (8.6-10.3); Carbon Dioxide 24 mEq/L (23-29); Chloride 99 mEq/L (98-107); Glucose 92 mg/dL (70-105); Iron 38 mcg/dL (50-170); Osmolality,Calculated 272 (280-300); Potassium 4.5 mEq/L (3.5-5.1); Sodium 130 mEq/L (136-145); Transferrin 234 mg/dL (203-362); eGFR For Non-African Americans > 60 (> 60)
[2018-05-02 07:19] LABS: Ferritin 68 ng/mL (10-120)
[2018-05-02 07:23] LABS: Folate 18.4 ng/mL (3.0-16.0)
[2018-05-02 07:25] LABS: Vitamin B12 > 1500 pg/mL (250-1100)
[2018-05-02] MEDS: Megestrol Acetate 400 MG/10 ML UDC PO SCH (07:53)
[2018-05-02] MEDS: Sennosides 8.6 MG TABLET PO SCH ×2 (07:53→20:24)
[2018-05-02] MEDS: Silvasorb 44.4 ML TUBE TP SCH (10:52)
--- NOTE | 2018-05-02 12:52 | Internal Med Progress Note ---
Hospitalist Progress Note - Encounter Date of Encounter: 05/02/18 Time of Encounter: 12:48 - Subjective Interval History: Patient seen and examined at bedside, she is sitting up in chair eating breakfast. She denies any pain or discomfort at this time. She states that her leg feels better. Requesting to be discharged home - Exam Vitals: Temp Pulse Resp BP Pulse Ox 98.5 F 89 17 149/68 98 05/02/18 11:40 05/02/18 11:40 05/02/18 11:40 05/02/18 11:40 05/02/18 11:40 Exam: General: pleasant, without distress oreiented to name and place HEENT: Head atraumatic, normocephalic, EOMI, PERRL, absent ear discharge or trauma, Moist Mucous Membranes, uvula midline Neck: nontender to palpation, absent lymphadenopathy, Cardiovascualr: sinus tachycardia no murmur, absent gallops or rubs, pedal edema , radial pulses 2 out of 4 Lungs: b/l basilar crackles, right lobe expritory wheezing, left upper lobe ronchi, not in respiratory distress Abdomen: Soft nontender, nondistended positive bowel sounds, absent hepatomegaly large midline scar Skin: right LE wound open, moist with softening skin, appears to have some pus MSK: absent clubbing, cyanosis, joints without swelling Neuro: Cranial nerves II through XII intact, UE and LE sensation equal bilaterally, UE and LEstrength 4/5, alert oriented 3, Psych: Calm appropriate - Assessment and Plan (1) CHF exacerbation Current Visit: Yes Status: Acute Assessment and Plan: acute chf exacerbation 2nd to increased fluid intake patient drinks 1-2L of tea with additional water has b/l LE edema 2+-we will check albumin level- which is low could also be contributing to lower extremity swelling Lung sounds have improved no crackles noted echocardiogram 03/2016 LVEF 50% with mild diastolic dysfunction patient is not on diuretics at home 05/01Much improved- lower extremity swelling improved no crackles We will continue oral Lasix, continue with fluid restriction as well as daily weights 05/02 Hyponatremia - we will hold lasix for now and resume at lower dose, otherwise sx improved- will monitor I/O cont fluid restriction (2) Hypothyroidism Current Visit: Yes Status: Chronic Assessment and Plan: hx of hypothyroidism current ths is 7.311 start 137mcg levothyroxine (increase from home dose) follow up with pcp. 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 We will obtain wound culture and started on antibiotics 05/01 White count back to baseline much improved to day, leg wound appears less red - no fever wound culture obtained awaiting results 05/02 white count stable R lower leg wound less swollen redness improved will cont ATB Vanc and zosyn for now (day 3) blood and wound culture pending (6) Frequent falls Current Visit: Yes Status: Acute Assessment and Plan: Patient has had frequent falls, she has old healing skin tear - sutures were to be removed week ago however they were still intact on presentation. She has a bruise above her left eyebrow which is healing, from previous fall. She lives alone and appears very thin. Socical services contacted- PT/OT recommending ECF 05/02 cont with fall precautions, PT OT-social science teacher consult it for possible ECF placement (7) Protein calorie malnutrition Current Visit: Yes Status: Acute Assessment and Plan: Patient has metastatic lung cancer she is very frail she does consume approximately 1-2 L of tea daily as well as water. She is on Megace at home we have resumed here. Dietary has been consulted continue with supplements albumin-low 05/02 patient's appetite has been good consuming 70-100% of meals will continue with Megace and dietary supplements. Dietitian consult and appreciate recommendations (8) Wound of right lower extremity Current Visit: Yes Status: Acute Assessment and Plan: 1 patient had a fall in March of this year she went to urgent care and had 22 sutures placed to a skin tear to right lower leg. She did not have sutures removed and have been in for approximately a month. Sutures have been removed and now wound is open red and appears to have pus. Previous tib-fib x-ray demonstrated soft tissue edema without acute bony abnormality We will obtain wound culture-we will start on vancomycin and Zosyn pharmacy to renally dose 05/01 white count improved , wound less red today, cont with dressing changes, awaiting wound culture 05/02 white count improved swelling improved redness improved continue with dressing changes awaiting wound/blood culture results (9) Anemia Current Visit: Yes Status: Acute Assessment and Plan: 1 She has had a drop in Hgb no jeancarlos bleeding noted. We will obtain stool for occult blood Anemia workup monitor H/H 05/02 hemoglobin is stable today - iron deficiency anemia-patient does have poor oral intake and has been receiving chemotherapy. We will supplement with iron and continue to monitor. No active bleeding. (10) Dementia Current Visit: Yes Status: Acute Assessment and Plan: 1 Patient was seen by psychiatry and appreciate their recommendations.- Based upon psych assessment "This patient is not competent for medical purposes regarding discharge by herself. She may benefit from 1 a friend or next of kin who could help in assisting her with decision making" She is high risk for falls and is malnourished- however the later maybe more rt chemo - She does live home alone with little help. I have not seen any family during this admission, as well as nursing reports no visitors. We will contact family, and set up meeting to discuss discharge planning . we will also stop valium and taper amitriptyline per psych recommendations to assist with memory Fall precations 05/02 we will discuss discharge planning with social science teacher in the a.m. also will arrange family meeting tomorrow for discussion of discharge planning. 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 R kidney -complex right adrenal lesion can be seen with a necrotic center measuring 3 x 2.7 cm. This is likely metastatic in nature. Currently renal function stable We will monitor closely 05/02 continue to monitor creatinine closely (12) Discharge planning issues Current Visit: Yes Status: Acute Assessment and Plan: 1 Dt patient dementia- psych consulted -This patient is not competent for medical purposes regarding discharge by herself. She may benefit from 1 a friend or next of kin who could help in assisting her with decision making SHe will require SNF/ECF placement. will nee to address on Thursday with social science teacher 05/02 will discuss with social science teacher and family about discharge planning possible ECF placement - Time Spent with Patient Total time spent is greater than 50% in coordination of care (as documented) at patient's floor/unit and/or counseling patient: Internal Medicine: Result - Labs CBC & Chem 7: 05/02/18 05:39 05/02/18 05:39 Labs: Short CBC 05/02/18 Range/Units 05:39 WBC 8.9 (4.3-11.1) K/mcL Hgb 8.5 L (11.5-15.4) g/dL Hct 26.1 L (35.3-44.9) % Plt Count 274 (140-400) K/mcL Neutrophils # 7.1 (1.6-8.9) K/mcL BMP 05/02/18 05:39 Sodium 130 L Potassium 4.5 Chloride 99 Carbon Dioxide 24 BUN 20 Creatinine 0.66 Glucose 92 Calcium 8.2 L - ABG Interpretation ABG results: PT/INR, D-dimer PT 11.9 Seconds (9.4-12.1) 04/27/18 21:58 Consult Discharge Plan - Plan Referrals: Zaira Spaulding, MEDICAL AFFAIRS SPECIALIST [Primary Care Provider] - (Your appointment has been requested. Our offices will call you with a follow up appointment time and date. ) (1) CHF exacerbation Qualifiers: Heart failure type: diastolic Qualified Code(s): I50.33 - Acute on chronic diastolic (congestive) heart failure (2) Hypothyroidism Qualifiers: Hypothyroidism type: unspecified Qualified Code(s): E03.9 - Hypothyroidism, unspecified (4) Adenocarcinoma, lung Qualifiers: Laterality: left Qualified Code(s): C34.92 - Malignant neoplasm of unspecified part of left bronchus or lung (5) Leukocytosis Qualifiers: Leukocytosis type: unspecified Qualified Code(s): D72.829 - Elevated white blood cell count, unspecified (7) Protein calorie malnutrition Qualifiers: Protein-calorie malnutrition severity: moderate Qualified Code(s): E44.0 - Moderate protein-calorie malnutrition (8) Wound of right lower extremity Qualifiers: Encounter type: initial encounter Qualified Code(s): S81.801A - Unspecified open wound, right lower leg, initial encounter (9) Anemia Qualifiers: Anemia type: unspecified type Qualified Code(s): D64.9 - Anemia, unspecified (10) Dementia Qualifiers: Dementia type: unspecified type Dementia behavioral disturbance: without behavioral disturbance Qualified Code(s): F03.90 - Unspecified dementia without behavioral disturbance
[2018-05-02] MEDS: *HR* OxyCODONE/APAP 5/325 TABLET PO PRN (20:38)
[2018-05-03] MEDS: Piperacillin/Tazobactam 3.375 GM in 0.9 % Sodium Chloride Mini Bag 100 ML IVPB SCH ×2 (01:13→08:21)
[2018-05-03] MEDS: *HR* Heparin 5,000 UNIT/ML VIAL SQ SCH ×3 (05:41→21:10)
[2018-05-03 06:19] LABS: Basophils % 0.2 %; Eosinophils # 0.1 K/mcL (0.0-0.6); Eosinophils % 1.1 %; Hematocrit 27.3 % (35.3-44.9); Hemoglobin 8.6 g/dL (11.5-15.4); Immature Granulocytes % 0.3 % (0-4); Lymphocytes % 11.6 %; Mean Corpuscular HGB Conc 31.5 g/dL (31.6-35.5); Mean Corpuscular Hemoglobin 29.8 pg (28.0-33.3); Mean Corpuscular Volume 94.5 fL (83.0-100.0); Mean Platelet Volume 11.3 fL (9.4-12.4); Monocytes # 0.6 K/mcL (0.0-1.3); Monocytes % 6.8 %; Neutrophils # 7.2 K/mcL (1.6-8.9); Platelet Count 255 K/mcL (140-400); Red Blood Count 2.89 M/mcL (3.82-4.97); Red Cell Distribution Width 21.4 % (11.5-14.5)
[2018-05-03 06:34] LABS: BUN/Creatinine Ratio 24 (6-26); Blood Urea Nitrogen 16 mg/dL (8-23); Calcium 8.8 mg/dL (8.6-10.3); Carbon Dioxide 27 mEq/L (23-29); Chloride 98 mEq/L (98-107); Glucose 90 mg/dL (70-105); Osmolality,Calculated 269 (280-300); Potassium 4.6 mEq/L (3.5-5.1); Sodium 129 mEq/L (136-145); eGFR For Non-African Americans > 60 (> 60)
[2018-05-03] MEDS ORDERED: Aminoglycoside Consult 1 EACH MC ONE (08:00)
[2018-05-03] MEDS: Megestrol Acetate 400 MG/10 ML UDC PO SCH (08:20)
[2018-05-03] MEDS: Sennosides 8.6 MG TABLET PO SCH ×2 (08:21→21:01)
[2018-05-03] MEDS: *HR* OxyCODONE/APAP 5/325 TABLET PO PRN ×2 (08:21→22:25)
[2018-05-03] MEDS: Silvasorb 44.4 ML TUBE TP SCH (08:22)
--- NOTE | 2018-05-03 10:45 | Internal Med Progress Note ---
Hospitalist Progress Note - Encounter Date of Encounter: 05/03/18 Time of Encounter: 10:45 - Subjective Interval History: Patient seen and examined at bedside, she is sitting up in chair eating breakfast. She denies any pain or discomfort at this time. She states that her leg feels better. - Exam Vitals: Temp Pulse Resp BP Pulse Ox 98.1 F 97 15 141/64 94 05/03/18 06:25 05/03/18 06:25 05/03/18 06:25 05/03/18 06:25 05/03/18 06:25 Exam: General: pleasant, without distress oreiented to name and place HEENT: Head atraumatic, normocephalic, EOMI, PERRL, absent ear discharge or trauma, Moist Mucous Membranes, uvula midline Neck: nontender to palpation, absent lymphadenopathy, Cardiovascualr: sinus tachycardia no murmur, absent gallops or rubs, pedal edema , radial pulses 2 out of 4 Lungs: b/l basilar crackles, right lobe expritory wheezing, left upper lobe ronchi, not in respiratory distress Abdomen: Soft nontender, nondistended positive bowel sounds, absent hepatomegaly large midline scar Skin: right LE wound open, moist with softening skin, appears to have some pus MSK: absent clubbing, cyanosis, joints without swelling Neuro: Cranial nerves II through XII intact, UE and LE sensation equal bilaterally, UE and LEstrength 4/5, alert oriented 3, Psych: Calm appropriate - Assessment and Plan (1) CHF exacerbation Current Visit: Yes Status: Acute Assessment and Plan: acute chf exacerbation 2nd to increased fluid intake patient drinks 1-2L of tea with additional water has b/l LE edema 2+-we will check albumin level- which is low could also be contributing to lower extremity swelling Lung sounds have improved no crackles noted echocardiogram 03/2016 LVEF 50% with mild diastolic dysfunction patient is not on diuretics at home 05/01Much improved- lower extremity swelling improved no crackles We will continue oral Lasix, continue with fluid restriction as well as daily weights 05/02 Hyponatremia - we will hold lasix for now and resume at lower dose, otherwise sx improved- will monitor I/O cont fluid restriction 05/03-hyponatremia slowly improving we will continue to hold for now. Monitor intake and output daily weight continue fluid restriction (2) Hypothyroidism Current Visit: Yes Status: Chronic Assessment and Plan: hx of hypothyroidism current ths is 7.311 start 137mcg levothyroxine (increase from home dose) follow up with pcp. 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 We will obtain wound culture and started on antibiotics 05/01 White count back to baseline much improved to day, leg wound appears less red - no fever wound culture obtained awaiting results 05/02 white count stable R lower leg wound less swollen redness improved will cont ATB Vanc and zosyn for now (day 3) blood and wound culture pending 917 white count stable right lower leg wound improving. Wound culture does show Enterobacter cloacae Klebsiella-sensitive to Levaquin we will switch to Levaquin (6) Frequent falls Current Visit: Yes Status: Acute Assessment and Plan: Patient has had frequent falls, she has old healing skin tear - sutures were to be removed week ago however they were still intact on presentation. She has a bruise above her left eyebrow which is healing, from previous fall. She lives alone and appears very thin. Socical services contacted- PT/OT recommending ECF 05/02 cont with fall precautions, PT OT-social work nurse consult it for possible ECF placement 05/03 continue with fall precautions social service consult possible ECF placement continue with PT OT (7) Protein calorie malnutrition Current Visit: Yes Status: Acute Assessment and Plan: Patient has metastatic lung cancer she is very frail she does consume approximately 1-2 L of tea daily as well as water. She is on Megace at home we have resumed here. Dietary has been consulted continue with supplements albumin-low 05/02 patient's appetite has been good consuming 70-100% of meals will continue with Megace and dietary supplements. Dietitian consult and appreciate recommendations 05/03 appetite is stable continue with Megace and dietary supplements Paul consulted and appreciate recommendations (8) Wound of right lower extremity Current Visit: Yes Status: Acute Assessment and Plan: 1 patient had a fall in March of this year she went to urgent care and had 22 sutures placed to a skin tear to right lower leg. She did not have sutures removed and have been in for approximately a month. Sutures have been removed and now wound is open red and appears to have pus. Previous tib-fib x-ray demonstrated soft tissue edema without acute bony abnormality We will obtain wound culture-we will start on vancomycin and Zosyn pharmacy to renally dose 05/01 white count improved , wound less red today, cont with dressing changes, awaiting wound culture 05/02 white count improved swelling improved redness improved continue with dressing changes awaiting wound/blood culture results 05/03 wound culture growing Enterobacter cloace and Klebsiella -sensitive to Levaquin we will switch to Levaquin IV. Continue with wound care (9) Anemia Current Visit: Yes Status: Acute Assessment and Plan: 1 She has had a drop in Hgb no jeancarlos bleeding noted. We will obtain stool for occult blood Anemia workup monitor H/H 05/02 hemoglobin is stable today - iron deficiency anemia-patient does have poor oral intake and has been receiving chemotherapy. We will supplement with iron and continue to monitor. No active bleeding. 05/03 applies to be stable continue to monitor for any signs or symptoms of bleeding continue with iron supplements (10) Dementia Current Visit: Yes Status: Acute Assessment and Plan: 1 Patient was seen by psychiatry and appreciate their recommendations.- Based upon psych assessment "This patient is not competent for medical purposes regarding discharge by herself. She may benefit from 1 a friend or next of kin who could help in assisting her with decision making" She is high risk for falls and is malnourished- however the later maybe more rt chemo - She does live home alone with little help. I have not seen any family during this admission, as well as nursing reports no visitors. We will contact family, and set up meeting to discuss discharge planning . we will also stop valium and taper amitriptyline per psych recommendations to assist with memory Fall precations 05/02 we will discuss discharge planning with social work nurse in the a.m. also will arrange family meeting tomorrow for discussion of discharge planning. 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 R kidney -complex right adrenal lesion can be seen with a necrotic center measuring 3 x 2.7 cm. This is likely metastatic in nature. Currently renal function stable We will monitor closely 05/02 continue to monitor creatinine closely (12) Discharge planning issues Current Visit: Yes Status: Acute Assessment and Plan: 1 Dt patient dementia- psych consulted -This patient is not competent for medical purposes regarding discharge by herself. She may benefit from 1 a friend or next of kin who could help in assisting her with decision making SHe will require SNF/ECF placement. will nee to address on Thursday with social work nurse 05/02 will discuss with social work nurse and family about discharge planning possible ECF placement 05/03 patient has history of falling was evaluated by PT and OT recommending ECF placement. Patient also evaluated by psychiatry patient is not competent for medical purposes regarding discharging by herself. According to family patient' s brother is power of assistant city attorney however at this time we do not have any paperwork patient's brother is out of town and is in the area where his cell phone is out of service. He will return on Thursday. I did discuss with social work nurse hopefully we can set up a family meeting concerning discharge planning and possible ECF placement. Patient may also require possible palliative/hospice she is receiving chemotherapy at this time. I did review this case with oncology nurse practitioner Mima Samuels-she will be available for any consult or recommendations as needed - Time Spent with Patient Total time spent is greater than 50% in coordination of care (as documented) at patient's floor/unit and/or counseling patient: Internal Medicine: Result - Labs CBC & Chem 7: 05/03/18 05:13 05/03/18 05:13 Labs: Short CBC 05/03/18 Range/Units 05:13 WBC 9.0 (4.3-11.1) K/mcL Hgb 8.6 L (11.5-15.4) g/dL Hct 27.3 L (35.3-44.9) % Plt Count 255 (140-400) K/mcL Neutrophils # 7.2 (1.6-8.9) K/mcL BMP 05/03/18 05:13 Sodium 129 L Potassium 4.6 Chloride 98 Carbon Dioxide 27 BUN 16 Creatinine 0.66 Glucose 90 Calcium 8.8 - ABG Interpretation ABG results: PT/INR, D-dimer PT 11.9 Seconds (9.4-12.1) 04/27/18 21:58 Consult Discharge Plan - Plan Referrals: Zaira Spaulding ADULT SECONDARY EDUCATION INSTRUCTOR [Primary Care Provider] - (Your appointment has been requested. Our offices will call you with a follow up appointment time and date. ) (1) CHF exacerbation Qualifiers: Heart failure type: diastolic Qualified Code(s): I50.33 - Acute on chronic diastolic (congestive) heart failure (2) Hypothyroidism Qualifiers: Hypothyroidism type: unspecified Qualified Code(s): E03.9 - Hypothyroidism, unspecified (4) Adenocarcinoma, lung Qualifiers: Laterality: left Qualified Code(s): C34.92 - Malignant neoplasm of unspecified part of left bronchus or lung (5) Leukocytosis Qualifiers: Leukocytosis type: unspecified Qualified Code(s): D72.829 - Elevated white blood cell count, unspecified (7) Protein calorie malnutrition Qualifiers: Protein-calorie malnutrition severity: moderate Qualified Code(s): E44.0 - Moderate protein-calorie malnutrition (8) Wound of right lower extremity Qualifiers: Encounter type: initial encounter Qualified Code(s): S81.801A - Unspecified open wound, right lower leg, initial encounter (9) Anemia Qualifiers: Anemia type: unspecified type Qualified Code(s): D64.9 - Anemia, unspecified (10) Dementia Qualifiers: Dementia type: unspecified type Dementia behavioral disturbance: without behavioral disturbance Qualified Code(s): F03.90 - Unspecified dementia without behavioral disturbance
[2018-05-04] MEDS: *HR* Heparin 5,000 UNIT/ML VIAL SQ SCH ×3 (06:12→21:45)
[2018-05-04] MEDS ORDERED: Levofloxacin 750 MG/150 ML 750 MG/150 ML BAG IVPB SCH (09:00)
--- NOTE | 2018-05-04 09:43 | Internal Med Progress Note ---
Hospitalist Progress Note - Encounter Date of Encounter: 05/04/18 Time of Encounter: 09:34 - Subjective Interval History: Seen and examined at bedside today. No acute changes overnight. Patient reports that she is not having any shortness of breath or swelling. - Exam Vitals: Temp Pulse Resp BP Pulse Ox 98.2 F 91 15 137/59 97 05/04/18 07:35 05/04/18 07:35 05/04/18 07:35 05/04/18 07:35 05/04/18 07:35 Exam: PHYSICAL EXAMINATION: GENERAL: The patient is a well-developed elderly female in no apparent distress , she is alert and oriented to name and place, some disorientation patient to situation. HEENT: Head is normocephalic and atraumatic. Extraocular muscles are intact. Pupils are equal, round, and reactive to light and accommodation. NECK: Supple. No carotid bruits. No lymphadenopathy or thyromegaly. LUNGS: Fine bibasilar rales, otherwise diminished throughout. Not in any respiratory distress. HEART: Regular rate and rhythm, S1, S2 without murmur. ABDOMEN: Soft, nontender, and nondistended. Positive bowel sounds. No hepatosplenomegaly was noted. EXTREMITIES: Without any cyanosis, clubbing, rash, lesions or edema. NEUROLOGIC: Cranial nerves II through XII are grossly intact. SKIN: No ulceration or induration present. - Assessment and Plan (1) CHF exacerbation Current Visit: Yes Status: Acute Assessment and Plan: 05/04--clinically, patient appears to be stable from a respiratory perspective. She is resting comfortably on room air at this time. On admission she was found to have an acute exacerbation of CHF with bilateral lower extremity 2+ edema and crackles in her lungs. Per today's assessment she continues to have mild bilateral basilar rales but bilateral lower extremity's are without edema. Lasix being held due to patient's hyponatremia. Repeat labs pending continue to hold Lasix at this time. --TTE 04/28/18--normal LV chamber size and function, mild LV hypertrophy, atypical septal motion consistent with PVD, indeterminate diastolic function, normal RV structure and function, no significant valvular dysfunction (2) Hypothyroidism Current Visit: Yes Status: Chronic Assessment and Plan: hx of hypothyroidism current ths is 7.311 start 137mcg levothyroxine (increase from home dose) follow up with pcp. 05/04--continue synthroid (3) Solitary right kidney Current Visit: No Status: Chronic Assessment and Plan: 1 upon review of previous CT abd pelvis 02/2018 - patient has solitary kidney- L kidney is missing. R kidney -complex right adrenal lesion can be seen with a necrotic center measuring 3 x 2.7 cm. This is likely metastatic in nature. 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 We will obtain wound culture and started on antibiotics 05/01 White count back to baseline much improved to day, leg wound appears less red - no fever wound culture obtained awaiting results 05/02 white count stable R lower leg wound less swollen redness improved will cont ATB Vanc and zosyn for now (day 3) blood and wound culture pending 917 white count stable right lower leg wound improving. Wound culture does show Enterobacter cloacae Klebsiella-sensitive to Levaquin we will switch to Levaquin (6) Frequent falls Current Visit: Yes Status: Acute Assessment and Plan: Patient has had frequent falls, she has old healing skin tear - sutures were to be removed week ago however they were still intact on presentation. She has a bruise above her left eyebrow which is healing, from previous fall. She lives alone and appears very thin. Socical services contacted- PT/OT recommending ECF 05/02 cont with fall precautions, PT OT-social media specialist consult it for possible ECF placement 05/03 continue with fall precautions social service consult possible ECF placement continue with PT OT 05/04--increased risk for falls with weakness and fatigue. Has a history of frequent falls resulting right lower extremity injury (skin tear). Per psych evaluation was found the patient is not competent to make medical decisions and is unsafe for discharge home. creative services director seeing in consultation to assist with discharge planning (7) Protein calorie malnutrition Current Visit: Yes Status: Acute Assessment and Plan: Patient has metastatic lung cancer she is very frail she does consume approximately 1-2 L of tea daily as well as water. She is on Megace at home we have resumed here. Dietary has been consulted continue with supplements albumin-low 05/02 patient's appetite has been good consuming 70-100% of meals will continue with Megace and dietary supplements. Dietitian consult and appreciate recommendations 05/03 appetite is stable continue with Megace and dietary supplements Paul consulted and appreciate recommendations 05/04-reports appetite is improving, continue with Megace and dietary supplementation (8) Wound of right lower extremity Current Visit: Yes Status: Acute Assessment and Plan: 1 patient had a fall in March of this year she went to urgent care and had 22 sutures placed to a skin tear to right lower leg. She did not have sutures removed and have been in for approximately a month. Sutures have been removed and now wound is open red and appears to have pus. Previous tib-fib x-ray demonstrated soft tissue edema without acute bony abnormality We will obtain wound culture-we will start on vancomycin and Zosyn pharmacy to renally dose 05/01 white count improved , wound less red today, cont with dressing changes, awaiting wound culture 05/02 white count improved swelling improved redness improved continue with dressing changes awaiting wound/blood culture results 05/03 wound culture growing Enterobacter cloace and Klebsiella -sensitive to Levaquin we will switch to Levaquin IV. Continue with wound care 05/04-continue treating Enterobacter cloacae and Klebsiella with Levaquin. Right lower extremity with Vaseline gauze and Kerlix dressing continue. Wound margins are without erythema, no drainage noted on today's assessment (9) Anemia Current Visit: Yes Status: Acute Assessment and Plan: History of chronic anemia Hemoglobin and hematocrit chronically 8-9 She has had a drop in hemoglobin from 10-8.6 No obvious bleeding noted Anemia workup reveals iron deficiency with iron of 38 and % saturation of 12 Continue with iron supplementation (10) Dementia Current Visit: Yes Status: Acute Assessment and Plan: History of dementia Concerns for safety in regards to decision making Psychiatry consult to help us today finds that the patient is not competent to make medical decisions and not competent for discharge by herself Discussed with social media specialist regarding safe discharge Awaiting power of assistant district attorney (brother) to return with paperwork and we will further discuss discharge planning from there. Additionally, per psych recommendations are to down titrate to discontinue amitriptyline. Now taking 50 mg, this will continue for 3 days then down titrate to 25 mg for 3 days then discontinue Continue with PT OT Continue falls precautions (11) Discharge planning issues Current Visit: Yes Status: Acute Assessment and Plan: Discuss with social media specialist regarding discharge planning issues. 05/04 patient has history of falling was evaluated by PT and OT recommending ECF placement. Patient is a high risk for future falls and injury. Concerns for patient's capacity to make appropriate healthcare decisions. As such psychiatry was consult for further evaluation; her psychiatry; patient is not competent for medical purposes regarding discharging by herself. According to family patient's brother is power of assistant district attorney however at this time we do not have any paperwork patient's brother is out of town and is in the area where his cell phone is out of service. He will return on Thursday and will present paperwork. In the meantime she is expected to stay overnight for further monitoring. I did discuss with social media specialist hopefully we can set up a family meeting concerning discharge planning and possible ECF placement. Patient may also require possible palliative/hospice she is receiving chemotherapy at this time. I did review this case with oncology nurse practitioner Mima Samuels-she will be available for any consult or recommendations as needed (12) DVT prophylaxis Current Visit: Yes Status: Acute Assessment and Plan: cont heparin sq - Time Spent with Patient Total time spent is greater than 50% in coordination of care (as documented) at patient's floor/unit and/or counseling patient: less than 15 minutes Plan of Care Discussed with: patient Internal Medicine: Result - Labs CBC & Chem 7: 05/03/18 05:13 05/03/18 05:13 - ABG Interpretation ABG results: PT/INR, D-dimer PT 11.9 Seconds (9.4-12.1) 04/27/18 21:58 Consult Discharge Plan - Plan Referrals: Zaira Spaulding, [facility] [Primary Care Provider] - (Your appointment has been requested. Our offices will call you with a follow up appointment time and date. ) (1) CHF exacerbation Qualifiers: Heart failure type: diastolic Qualified Code(s): I50.33 - Acute on chronic diastolic (congestive) heart failure (2) Hypothyroidism Qualifiers: Hypothyroidism type: unspecified Qualified Code(s): E03.9 - Hypothyroidism, unspecified (4) Adenocarcinoma, lung Qualifiers: Laterality: left Qualified Code(s): C34.92 - Malignant neoplasm of unspecified part of left bronchus or lung (5) Leukocytosis Qualifiers: Leukocytosis type: unspecified Qualified Code(s): D72.829 - Elevated white blood cell count, unspecified (7) Protein calorie malnutrition Qualifiers: Protein-calorie malnutrition severity: moderate Qualified Code(s): E44.0 - Moderate protein-calorie malnutrition (8) Wound of right lower extremity Qualifiers: Encounter type: initial encounter Qualified Code(s): S81.801A - Unspecified open wound, right lower leg, initial encounter (9) Anemia Qualifiers: Anemia type: unspecified type Qualified Code(s): D64.9 - Anemia, unspecified (10) Dementia Qualifiers: Dementia type: unspecified type Dementia behavioral disturbance: without behavioral disturbance Qualified Code(s): F03.90 - Unspecified dementia without behavioral disturbance
[2018-05-04 10:40] LABS: Hematocrit 29.2 % (35.3-44.9); Hemoglobin 9.4 g/dL (11.5-15.4); Mean Corpuscular HGB Conc 32.2 g/dL (31.6-35.5); Mean Corpuscular Hemoglobin 30.7 pg (28.0-33.3); Mean Corpuscular Volume 95.4 fL (83.0-100.0); Mean Platelet Volume 9.8 fL (9.4-12.4); Platelet Count 294 K/mcL (140-400); Red Blood Count 3.06 M/mcL (3.82-4.97); Red Cell Distribution Width 20.9 % (11.5-14.5)
[2018-05-04] MEDS: Megestrol Acetate 400 MG/10 ML UDC PO SCH (10:46)
[2018-05-04] MEDS: Sennosides 8.6 MG TABLET PO SCH ×2 (10:48→21:45)
[2018-05-04] MEDS: Silvasorb 44.4 ML TUBE TP SCH (14:38)
[2018-05-04] MEDS: *HR* OxyCODONE/APAP 5/325 TABLET PO PRN (23:55)
[2018-05-05] MEDS: *HR* Heparin 5,000 UNIT/ML VIAL SQ SCH ×3 (05:31→20:56)
--- NOTE | 2018-05-05 07:39 | Internal Med Progress Note ---
Hospitalist Progress Note - Encounter Date of Encounter: 05/05/18 Time of Encounter: 07:27 - Subjective Interval History: Seen and examined at bedside today. No acute changes overnight. Patient reports that this morning she is feeling better and ready for discharge. She is endorsing mild shortness of breath that is intermittent but reports that this is her baseline - Exam Vitals: Temp Pulse Resp BP Pulse Ox 97.8 F 74 16 144/70 96 05/05/18 03:06 05/05/18 03:06 05/05/18 03:06 05/05/18 03:06 05/05/18 03:06 Exam: PHYSICAL EXAMINATION: GENERAL: The patient is a well-developed elderly female in no apparent distress , she is alert and oriented to name and place, some disorientation to situation. HEENT: Head is normocephalic and atraumatic. Extraocular muscles are intact. Pupils are equal, round, and reactive to light and accommodation. NECK: Supple. No carotid bruits. No lymphadenopathy or thyromegaly. LUNGS: Fine bibasilar rales, otherwise diminished throughout. Not in any respiratory distress. HEART: RRR, S1, S2 without murmur. ABDOMEN: Soft, nontender, and nondistended. Positive bowel sounds. No hepatosplenomegaly was noted. EXTREMITIES: Without any cyanosis, clubbing, rash, lesions or edema. NEUROLOGIC: Cranial nerves II through XII are grossly intact. SKIN: RLE skin tear with yellow slough tissue; no exudate present - Assessment and Plan (1) CHF exacerbation Current Visit: Yes Status: Acute Assessment and Plan: 05/04--clinically, patient appears to be stable from a respiratory perspective. She is resting comfortably on room air at this time. On admission she was found to have an acute exacerbation of CHF with bilateral lower extremity 2+ edema and crackles in her lungs. Per today's assessment she continues to have mild bilateral basilar rales but bilateral lower extremity's are without edema. Lasix being held due to patient's hyponatremia. Repeat labs pending continue to hold Lasix at this time. --TTE 04/28/18--normal LV chamber size and function, mild LV hypertrophy, atypical septal motion consistent with PVD, indeterminate diastolic function, normal RV structure and function, no significant valvular dysfunction (2) Hypothyroidism Current Visit: Yes Status: Chronic Assessment and Plan: hx of hypothyroidism current ths is 7.311 start 137mcg levothyroxine (increase from home dose) follow up with pcp. 05/04--continue synthroid (3) Solitary right kidney Current Visit: No Status: Chronic Assessment and Plan: 1 upon review of previous CT abd pelvis 02/2018 - patient has solitary kidney- L kidney is missing. R kidney -complex right adrenal lesion can be seen with a necrotic center measuring 3 x 2.7 cm. This is likely metastatic in nature. 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 We will obtain wound culture and started on antibiotics 05/01 White count back to baseline much improved to day, leg wound appears less red - no fever wound culture obtained awaiting results 05/02 white count stable R lower leg wound less swollen redness improved will cont ATB Vanc and zosyn for now (day 3) blood and wound culture pending 917 white count stable right lower leg wound improving. Wound culture does show Enterobacter cloacae Klebsiella-sensitive to Levaquin we will switch to Levaquin 05/04-resolved WBC 9.5 05/05-RESOLVED (6) Frequent falls Current Visit: Yes Status: Acute Assessment and Plan: Patient has had frequent falls, she has old healing skin tear - sutures were to be removed week ago however they were still intact on presentation. She has a bruise above her left eyebrow which is healing, from previous fall. She lives alone and appears very thin. Socical services contacted- PT/OT recommending ECF 05/02 cont with fall precautions, PT OT-social insurance adviser consult it for possible ECF placement 05/03 continue with fall precautions social service consult possible ECF placement continue with PT OT 05/04--increased risk for falls with weakness and fatigue. Has a history of frequent falls resulting right lower extremity injury (skin tear). Per psych evaluation was found the patient is not competent to make medical decisions and is unsafe for discharge home. services delivery driver seeing in consultation to assist with discharge planning 05/05-no falls during hospital stay; multiple falls prior to admission 2/2 generalized with metastatic cancer diagnosis and chemo/radiation treatment and decreased appetite contributing to functional decline. PT/OT seeing; recommend SNF d/t safety. Patient has poor safety awareness. Psych (Dr. Chanel) has seen the patient and deemed her incompetent in regards to medical decisions and d/c home with self care. Will discuss with patient and POA this afternoon. D/ w SS and NN for d/c planing. Continue with falls precautions, and PT/OT. Continue to downtitrate amitriptyline as rec per psych. (7) Protein calorie malnutrition Current Visit: Yes Status: Acute Assessment and Plan: Patient has metastatic lung cancer she is very frail she does consume approximately 1-2 L of tea daily as well as water. She is on Megace at home we have resumed here. Dietary has been consulted continue with supplements albumin-low 05/02 patient's appetite has been good consuming 70-100% of meals will continue with Megace and dietary supplements. Dietitian consult and appreciate recommendations 05/03 appetite is stable continue with Megace and dietary supplements Paul consulted and appreciate recommendations 05/04-reports appetite is improving, continue with Megace and dietary supplementation 05/04 as above (8) Wound of right lower extremity Current Visit: Yes Status: Acute Assessment and Plan: 1 patient had a fall in March of this year she went to urgent care and had 22 sutures placed to a skin tear to right lower leg. She did not have sutures removed and have been in for approximately a month. Sutures have been removed and now wound is open red and appears to have pus. Previous tib-fib x-ray demonstrated soft tissue edema without acute bony abnormality We will obtain wound culture-we will start on vancomycin and Zosyn pharmacy to renally dose 05/01 white count improved , wound less red today, cont with dressing changes, awaiting wound culture 05/02 white count improved swelling improved redness improved continue with dressing changes awaiting wound/blood culture results 05/03 wound culture growing Enterobacter cloace and Klebsiella -sensitive to Levaquin we will switch to Levaquin IV. Continue with wound care 05/04-continue treating Enterobacter cloacae and Klebsiella with Levaquin. Right lower extremity with Vaseline gauze and Kerlix dressing continue. Wound margins are without erythema, no drainage noted on today's assessment 05/05- clinically stable; yellow slough present, no exudate noted. Continue with Vaseline gauze and Kerlix dressing, also, continue silasorb gel. Cont with levaquin for e. cloacae and Klebsiella (s) to levaquin Day #5 total of ABX treatment, expect 10-14 days of total treatment with immunocompromise (9) Anemia Current Visit: Yes Status: Acute Assessment and Plan: History of chronic anemia Hemoglobin and hematocrit chronically 8-9 She has had a drop in hemoglobin from 10-8.6 No obvious bleeding noted Anemia workup reveals iron deficiency with iron of 38 and % saturation of 12 Continue with iron supplementation - remains stable H/H 9.8/31.2, cont to monitor for s/sx bleeding, none noted today, chronic anemia, continue with iron supp (10) Dementia Current Visit: Yes Status: Acute Assessment and Plan: History of dementia; poor decision making capacity per psych Psychiatry consult to help us today finds that the patient is not competent to make medical decisions and not competent for discharge by herself Discussed with social insurance adviser regarding safe discharge; NN following Awaiting power of trademark attorney (brother) to return with paperwork and we will further discuss discharge planning from there. Additionally, per psych recommendations are to down titrate to discontinue amitriptyline. Now taking 50 mg, this will continue for 3 days then down titrate to 25 mg for 3 days then discontinue Continue with PT OT Continue falls precautions (11) Discharge planning issues Current Visit: Yes Status: Acute Assessment and Plan: (12) DVT prophylaxis Current Visit: Yes Status: Acute Assessment and Plan: continue heparin sq - Time Spent with Patient Total time spent is greater than 50% in coordination of care (as documented) at patient's floor/unit and/or counseling patient: less than 15 minutes Plan of Care Discussed with: patient Internal Medicine: Result - Labs CBC & Chem 7: 05/05/18 07:05 05/05/18 07:05 Labs: Short CBC 05/04/18 Range/Units 10:19 WBC 9.5 (4.3-11.1) K/mcL Hgb 9.4 L (11.5-15.4) g/dL Hct 29.2 L (35.3-44.9) % Plt Count 294 (140-400) K/mcL - ABG Interpretation ABG results: PT/INR, D-dimer PT 11.9 Seconds (9.4-12.1) 04/27/18 21:58 Consult Discharge Plan - Plan Referrals: Zaira Spaulding, [facility] [Primary Care Provider] - (Your appointment has been requested. Our offices will call you with a follow up appointment time and date. ) (1) CHF exacerbation Qualifiers: Heart failure type: diastolic Qualified Code(s): I50.33 - Acute on chronic diastolic (congestive) heart failure (2) Hypothyroidism Qualifiers: Hypothyroidism type: unspecified Qualified Code(s): E03.9 - Hypothyroidism, unspecified (4) Adenocarcinoma, lung Qualifiers: Laterality: left Qualified Code(s): C34.92 - Malignant neoplasm of unspecified part of left bronchus or lung (5) Leukocytosis Qualifiers: Leukocytosis type: unspecified Qualified Code(s): D72.829 - Elevated white blood cell count, unspecified (7) Protein calorie malnutrition Qualifiers: Protein-calorie malnutrition severity: moderate Qualified Code(s): E44.0 - Moderate protein-calorie malnutrition (8) Wound of right lower extremity Qualifiers: Encounter type: initial encounter Qualified Code(s): S81.801A - Unspecified open wound, right lower leg, initial encounter (9) Anemia Qualifiers: Anemia type: unspecified type Qualified Code(s): D64.9 - Anemia, unspecified (10) Dementia Qualifiers: Dementia type: unspecified type Dementia behavioral disturbance: without behavioral disturbance Qualified Code(s): F03.90 - Unspecified dementia without behavioral disturbance
[2018-05-05 07:55] LABS: BUN/Creatinine Ratio 28 (6-26); Blood Urea Nitrogen 16 mg/dL (8-23); Calcium 8.9 mg/dL (8.6-10.3); Carbon Dioxide 23 mEq/L (23-29); Chloride 99 mEq/L (98-107); Glucose 90 mg/dL (70-105); Osmolality,Calculated 269 (280-300); Potassium 4.7 mEq/L (3.5-5.1); Sodium 129 mEq/L (136-145); eGFR For Non-African Americans > 60 (> 60)
[2018-05-05 07:56] LABS: Basophils % 0.3 %; Eosinophils # 0.1 K/mcL (0.0-0.6); Eosinophils % 1.1 %; Hematocrit 31.2 % (35.3-44.9); Hemoglobin 9.8 g/dL (11.5-15.4); Immature Granulocytes % 0.2 % (0-4); Lymphocytes # 1.2 K/mcL (0.6-4.6); Lymphocytes % 12.6 %; Mean Corpuscular HGB Conc 31.4 g/dL (31.6-35.5); Mean Corpuscular Volume 95.4 fL (83.0-100.0); Mean Platelet Volume 10.9 fL (9.4-12.4); Monocytes # 0.8 K/mcL (0.0-1.3); Monocytes % 8.4 %; Neutrophils # 7.3 K/mcL (1.6-8.9); Nucleated Red Blood Cells 0.5 /100 WBC (0); Platelet Count 294 K/mcL (140-400); Red Blood Count 3.27 M/mcL (3.82-4.97); Red Cell Distribution Width 20.7 % (11.5-14.5); Segmented Neutrophils % 77.4 %
[2018-05-05] MEDS: Megestrol Acetate 400 MG/10 ML UDC PO SCH (08:40)
[2018-05-05] MEDS: Sennosides 8.6 MG TABLET PO SCH ×2 (08:40→20:55)
[2018-05-05] MEDS: Silvasorb 44.4 ML TUBE TP SCH (08:41)
[2018-05-06] MEDS: *HR* Heparin 5,000 UNIT/ML VIAL SQ SCH ×2 (05:47→13:02)
[2018-05-06] MEDS: Megestrol Acetate 400 MG/10 ML UDC PO SCH (08:16)
[2018-05-06] MEDS: Sennosides 8.6 MG TABLET PO SCH (08:16)
[2018-05-06] MEDS: Silvasorb 44.4 ML TUBE TP SCH (08:19)
[2018-05-06] MEDS ORDERED: levoFLOXacin 750 MG TABLET PO SCH (09:00)
--- NOTE | 2018-05-06 09:22 | Internal Med Progress Note ---
Hospitalist Progress Note - Encounter Date of Encounter: 05/06/18 Time of Encounter: 09:19 - Subjective Interval History: Seen and examined at bedside today. No acute changes overnight. - Exam Vitals: Temp Pulse Resp BP Pulse Ox 98.1 F 83 15 156/68 95 05/06/18 07:46 05/06/18 07:46 05/06/18 07:46 05/06/18 07:46 05/06/18 07:46 Exam: PHYSICAL EXAMINATION: GENERAL: The patient is a well-developed elderly female in no apparent distress , she is alert and oriented to name and place, some disorientation to situation. HEENT: Head is normocephalic and atraumatic. Extraocular muscles are intact. Pupils are equal, round, and reactive to light and accommodation. NECK: Supple. No carotid bruits. No lymphadenopathy or thyromegaly. LUNGS: Clear/Diminished, Not in any respiratory distress. HEART: RRR, S1, S2 without murmur. ABDOMEN: Soft, nontender, and nondistended. Positive bowel sounds. No hepatosplenomegaly was noted. EXTREMITIES: Without any cyanosis, clubbing, rash, lesions or edema. NEUROLOGIC: Cranial nerves II through XII are grossly intact. SKIN: RLE skin tear with yellow slough tissue; no exudate present PSYC: Intermittent confusion - Assessment and Plan (1) CHF exacerbation Current Visit: Yes Status: Resolved Assessment and Plan: 05/04--clinically, patient appears to be stable from a respiratory perspective. She is resting comfortably on room air at this time. On admission she was found to have an acute exacerbation of CHF with bilateral lower extremity 2+ edema and crackles in her lungs. Per today's assessment she continues to have mild bilateral basilar rales but bilateral lower extremity's are without edema. Lasix being held due to patient's hyponatremia. Repeat labs pending continue to hold Lasix at this time. --TTE 04/28/18--normal LV chamber size and function, mild LV hypertrophy, atypical septal motion consistent with PVD, indeterminate diastolic function, normal RV structure and function, no significant valvular dysfunction 05/06- No s/sx of fluid overload, lungs clear on RA without respiratory difficulty. No extremity edema noted on exam. Acute CHF resolved. (2) Hypothyroidism Current Visit: Yes Status: Chronic Assessment and Plan: hx of hypothyroidism current ths is 7.311 start 137mcg levothyroxine (increase from home dose) follow up with pcp. 05/04--continue synthroid (3) Solitary right kidney Current Visit: No Status: Chronic Assessment and Plan: 1 upon review of previous CT abd pelvis 02/2018 - patient has solitary kidney- L kidney is missing. R kidney -complex right adrenal lesion can be seen with a necrotic center measuring 3 x 2.7 cm. This is likely metastatic in nature. 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 followup with oncology as previously scheduled Last follow-up appointment 04/03 05/06- to have additional doses of chemo/radiation this month 05/04 (5) Leukocytosis Current Visit: Yes Status: Resolved Assessment and Plan: WBC 18.3 unclear etiology predominantly neutrophillic no evidence of pna on exam/cxr urinalysis no signs of UTI skin does not show signs of infection afebrile patient was on dexamethasone which was started by Oncology on 04/05 for 18 days blood cultures sent 04/29 suspect this is rt steroid back to baseline today 04/30-white count is elevated suspect infection to right leg wound. We will obtain wound culture and started on antibiotics 05/01 White count back to baseline much improved to day, leg wound appears less red - no fever wound culture obtained awaiting results 05/02 white count stable R lower leg wound less swollen redness improved will cont ATB Vanc and zosyn for now (day 3) blood and wound culture pending 917 white count stable right lower leg wound improving. Wound culture does show Enterobacter cloacae Klebsiella-sensitive to Levaquin we will switch to Levaquin 05/04-resolved WBC 9.5 05/05-RESOLVED (6) Frequent falls Current Visit: Yes Status: Acute Assessment and Plan: Patient has had frequent falls, she has old healing skin tear - sutures were to be removed week ago however they were still intact on presentation. She has a bruise above her left eyebrow which is healing, from previous fall. She lives alone and appears very thin. Socical services contacted- PT/OT recommending ECF 05/02 cont with fall precautions, PT OT-social security benefits interviewer consult it for possible ECF placement 05/03 continue with fall precautions social service consult possible ECF placement continue with PT OT 05/04--increased risk for falls with weakness and fatigue. Has a history of frequent falls resulting right lower extremity injury (skin tear). Per psych evaluation was found the patient is not competent to make medical decisions and is unsafe for discharge home. commissioner of relocation services seeing in consultation to assist with discharge planning 05/05-no falls during hospital stay; multiple falls prior to admission 09/18 generalized with metastatic cancer diagnosis and chemo/radiation treatment and decreased appetite contributing to functional decline. PT/OT seeing; recommend SNF d/t safety. Patient has poor safety awareness. Psych (Dr. Chanel) has seen the patient and deemed her incompetent in regards to medical decisions and d/c home with self care. Will discuss with patient and POA this afternoon. D/ w SS and NN for d/c planing. Continue with falls precautions, and PT/OT. Continue to downtitrate amitriptyline as rec per psych. 05/06-no falls overnight. Unsafe to d/c home without round the clock care d/t poor safety awareness. Deemed incompetent to make safety or medical decision per psych. Brother at bedside, discuss barriers to d/c and PT/OT recommendation for SNF placement (7) Protein calorie malnutrition Current Visit: Yes Status: Acute Assessment and Plan: Patient has metastatic lung cancer she is very frail she does consume approximately 1-2 L of tea daily as well as water. She is on Megace at home we have resumed here. Dietary has been consulted continue with supplements albumin-low 05/02 patient's appetite has been good consuming 70-100% of meals will continue with Megace and dietary supplements. Dietitian consult and appreciate recommendations 05/03 appetite is stable continue with Megace and dietary supplements Paul consulted and appreciate recommendations 05/04-reports appetite is improving, continue with Megace and dietary supplementation 05/04 as above (8) Wound of right lower extremity Current Visit: Yes Status: Acute Assessment and Plan: 1 patient had a fall in March of this year she went to urgent care and had 22 sutures placed to a skin tear to right lower leg. She did not have sutures removed and have been in for approximately a month. Sutures have been removed and now wound is open red and appears to have pus. Previous tib-fib x-ray demonstrated soft tissue edema without acute bony abnormality We will obtain wound culture-we will start on vancomycin and Zosyn pharmacy to renally dose 05/01 white count improved , wound less red today, cont with dressing changes, awaiting wound culture 05/02 white count improved swelling improved redness improved continue with dressing changes awaiting wound/blood culture results 05/03 wound culture growing Enterobacter cloace and Klebsiella -sensitive to Levaquin we will switch to Levaquin IV. Continue with wound care 05/04-continue treating Enterobacter cloacae and Klebsiella with Levaquin. Right lower extremity with Vaseline gauze and Kerlix dressing continue. Wound margins are without erythema, no drainage noted on today's assessment 05/05- clinically stable; yellow slough present, no exudate noted. Continue with Vaseline gauze and Kerlix dressing, also, continue silasorb gel. Cont with levaquin for e. cloacae and Klebsiella (s) to levaquin Day #5 total of ABX treatment, expect 10-14 days of total treatment with immunocompromise 04/18- no changes to wound, yellow slough present, no exudate. Continue with care as stated above. Upon D/C will need ABX (9) Anemia Current Visit: Yes Status: Acute Assessment and Plan: History of chronic anemia Hemoglobin and hematocrit chronically 8-9 She has had a drop in hemoglobin from 10-8.6 No obvious bleeding noted Anemia workup reveals iron deficiency with iron of 38 and % saturation of 12 Continue with iron supplementation 05/05- remains stable H/H 9.8/31.2, cont to monitor for s/sx bleeding, none noted today, chronic anemia, continue with iron supp 05/06- no s/sx of bleeding, anemia is chronic. (10) Dementia Current Visit: Yes Status: Acute Assessment and Plan: History of dementia; poor decision making capacity per psych Psychiatry consult to help us today finds that the patient is not competent to make medical decisions and not competent for discharge by herself Discussed with social security benefits interviewer regarding safe discharge; NN following Awaiting power of compliance attorney (brother) to return with paperwork and we will further discuss discharge planning from there. Additionally, per psych recommendations are to down titrate to discontinue amitriptyline. Now taking 50 mg, this will continue for 3 days then down titrate to 25 mg for 3 days then discontinue Continue with PT OT Continue falls precautions 05/06 d/w brother this afternoon (11) Discharge planning issues Current Visit: Yes Status: Acute Assessment and Plan: D/W Brother POC regarding d/c per psych; patient is not competent to make medical or safety decisions PT/OT rec to d/c to SNF; D/w brother and patient regarding d/c to ECF; however they are both adamant against d/c to facility Unclear if Brother is POA; awaiting paperwork Will have SS and NN attempt to set-up home health if brother is able to produce POA, if not reconsider ECF. Consider re-evaluation from psych (12) Hyponatremia Current Visit: Yes Status: Acute Assessment and Plan: etilogy unclear, serum NA 129; drinks 1-2 liters of tea daily in addition to water likely multifactorial; chronic hyponatremia; h/o lung cancer as well consider SIADH serum osmo low, awaiting urine NA (13) DVT prophylaxis Current Visit: Yes Status: Acute Assessment and Plan: continue SC Heparin - Time Spent with Patient Total time spent is greater than 50% in coordination of care (as documented) at patient's floor/unit and/or counseling patient: 25 - 35 minutes Plan of Care Discussed with: patient Internal Medicine: Result - Labs CBC & Chem 7: 05/05/18 07:05 05/05/18 07:05 - ABG Interpretation ABG results: PT/INR, D-dimer PT 11.9 Seconds (9.4-12.1) 04/27/18 21:58 Consult Discharge Plan - Plan Referrals: Zaira Spaulding, PER DIEM NURSE [Primary Care Provider] - (Your appointment has been requested. Our offices will call you with a follow up appointment time and date. ) (1) CHF exacerbation Qualifiers: Heart failure type: diastolic Qualified Code(s): I50.33 - Acute on chronic diastolic (congestive) heart failure (2) Hypothyroidism Qualifiers: Hypothyroidism type: unspecified Qualified Code(s): E03.9 - Hypothyroidism, unspecified (4) Adenocarcinoma, lung Qualifiers: Laterality: left Qualified Code(s): C34.92 - Malignant neoplasm of unspecified part of left bronchus or lung (5) Leukocytosis Qualifiers: Leukocytosis type: unspecified Qualified Code(s): D72.829 - Elevated white blood cell count, unspecified (7) Protein calorie malnutrition Qualifiers: Protein-calorie malnutrition severity: moderate Qualified Code(s): E44.0 - Moderate protein-calorie malnutrition (8) Wound of right lower extremity Qualifiers: Encounter type: initial encounter Qualified Code(s): S81.801A - Unspecified open wound, right lower leg, initial encounter (9) Anemia Qualifiers: Anemia type: unspecified type Qualified Code(s): D64.9 - Anemia, unspecified (10) Dementia Qualifiers: Dementia type: unspecified type Dementia behavioral disturbance: without behavioral disturbance Qualified Code(s): F03.90 - Unspecified dementia without behavioral disturbance
[2018-05-06 11:47] VITALS: BP 121/72
--- NOTE | 2018-05-06 14:01 | Discharge Summary ---
- NOTES TO OUTPATIENT PROVIDER Notes to Outpatient Provider: f/u on RLE wound Orders not resulted at time of discharge: Pending orders 05/02/18 05:51 Osmolality,Urine [UCHEM] AM 0400 Sodium, Urine [UCHEM] AM 0400 05/07/18 04:00 Sodium DAILY 05/08/18 04:00 Sodium DAILY 05/09/18 04:00 Sodium DAILY Date of Encounter: 05/06/18 Time of Encounter: 13:56 - Discharge Diagnosis (1) CHF exacerbation Priority: Primary Status: Resolved Qualifiers: Heart failure type: diastolic Qualified Code(s): I50.33 - Acute on chronic diastolic (congestive) heart failure (2) Hypothyroidism Priority: Secondary Status: Chronic Qualifiers: Hypothyroidism type: unspecified Qualified Code(s): E03.9 - Hypothyroidism , unspecified (3) Solitary right kidney Priority: Secondary Status: Chronic (4) Adenocarcinoma, lung Priority: Secondary Status: Acute Qualifiers: Laterality: left Qualified Code(s): C34.92 - Malignant neoplasm of unspecified part of left bronchus or lung (5) Leukocytosis Priority: Secondary Status: Resolved Qualifiers: Leukocytosis type: unspecified Qualified Code(s): D72.829 - Elevated white blood cell count, unspecified (6) Frequent falls Priority: Secondary Status: Acute (7) Protein calorie malnutrition Priority: Secondary Status: Acute Qualifiers: Protein-calorie malnutrition severity: moderate Qualified Code(s): E44.0 - Moderate protein-calorie malnutrition (8) Wound of right lower extremity Priority: Secondary Status: Acute Qualifiers: Encounter type: initial encounter Qualified Code(s): S81.801A - Unspecified open wound, right lower leg, initial encounter (9) Anemia Priority: Secondary Status: Acute Qualifiers: Anemia type: unspecified type Qualified Code(s): D64.9 - Anemia, unspecified (10) Dementia Priority: Secondary Status: Acute Qualifiers: Dementia type: unspecified type Dementia behavioral disturbance: without behavioral disturbance Qualified Code(s): F03.90 - Unspecified dementia without behavioral disturbance (11) Discharge planning issues Priority: Secondary Status: Acute Assessment and Plan: d/c home with brother; will receive home health, assisted living nursing director, PT/OT (12) Hyponatremia Priority: Secondary Status: Acute (13) DVT prophylaxis Priority: Secondary Status: Acute Hospital course: Ms. Bennett is a 87 year old female with a history of metastatic lung cancer on chemotherapy. The patient presented to the hospital a chief complaint of RLE pain and shortness of breath as well as generalized weakness. Was found to have congestive heart failure as well as right lower extremity wound. She was treated for CHF and she is now back to baseline without any signs or symptoms of congestive heart failure fluid overload. She is resting comfortably on room air without any respiratory distress. She is able to move around the room unassisted with minimal fatigue. Right lower extremity wound approximately 10 cm long by for similar is wide treated with Silvasorb gel, Vaseline gauze and Kerlix. There is some concern throughout the stay as well as not the patient would be safe for discharge home. Psychiatry was seen throughout stay and determined that the patient was unable to make medical floor safe decisions for herself. Additionally, the psychiatrist consultation revealed that the patient is likely having confusion due to high dose of amitriptyline. Recommendations were to come titrate amitriptyline and discontinue. She is being discharged with a 3 day dose of 25 mg amitriptyline daily then discontinue thereafter. Her brother is next of kin and she is estranged from her children. Her brother is at bedside and reports that he will take her home and assist with providing care for her. He reports that he spends the majority of his days with her. In addition to that she will discharge with home health, nursing therapy, PT/OT and aide. [facility]outh is able to report to her house 5 days a week. Discharge discussed with: patient, family, nurse - Time Spent with Patient Total time spent providing and/or coordinating discharge services: Less than 30 minutes - Discharge Medications Prescriptions: levoFLOXacin [Levaquin] 750 mg PO DAILY 5 Days #5 tablet Home Medications: Docusate Sodium [Colace] 100 mg PO BID #60 capsule 01/26/17 [Rx] Acetaminophen [Arthritis Pain Relief] 650 mg PO TID PRN 10/19/17 [History] Ascorbic Acid [Vitamin C] 1,000 mg PO DAILY 11/19/17 [History] Meloxicam [Mobic] 7.5 mg PO BID 02/22/18 [History] Levothyroxine [Synthroid] 125 mcg PO DAILY@0630 #90 tablet 03/04/18 [Rx] Dexamethasone [Decadron] 4 mg PO BID #36 tab 04/05/18 [Rx] OxyCODONE/APAP 5/325 [Percocet 5/325 MG] 1 each PO Q6HR PRN 30 Days #120 tablet 04/20/18 [Rx] diazePAM [Valium] 5 mg PO HS PRN 30 Days #30 tablet 04/20/18 [Rx] Amitriptyline [Elavil] 25 mg PO HS 3 Days #3 tablet 05/06/18 [Rx] levoFLOXacin [Levaquin] 750 mg PO DAILY 5 Days #5 tablet 05/06/18 [Rx] Allergies/Adverse Reactions: 3 Allergy/AdvReac Type Severity Reaction Status Date / Time Sulfa (Sulfonamide Allergy Rash Verified 04/08/18 10:48 Antibiotics) Date of admission: 04/28/18 12:54 Primary care physician: Zaira Spaulding CNP Consults: 04/28/18 15:51 Consult to Wound Care [CONS] Routine Reason for Consult: skin tear Time Notified: 15:52 Call Completed: Yes 04/29/18 07:15 Consult to Emission Technician [CONS] Routine Reason for SW Consult: PT/OT recommend ECF 04/29/18 13:53 Consult to Psychiatry [CONS] Routine Consulting Provider: Psychiatry Lucero Reason consult: Capacity assessment Time Notified: 13:54 Call Completed: Yes Discharging clinician: Wali Kaur Anticipated date of discharge: 05/06/18 - Constitutional Vitals: Temp Pulse Resp BP Pulse Ox 98.2 F 102 15 121/72 98 05/06/18 11:46 05/06/18 11:46 05/06/18 11:46 05/06/18 11:46 05/06/18 11:46 General appearance: Present: A&O X 3 Exam: . - Head Head exam: Present: atraumatic, normocephalic - Eye Eye exam: Present: PERRL, conjuntiva pink, sclera anicteric Pupils: Present: PERRL - Neck Neck exam general surgery: Present: supple, trachea midline. Absent: lymphadenopathy - Respiratory Respiratory exam: Present: CTAB. Absent: accessory muscle use, rales, rhonchi, wheezes - Cardiovascular Cardiovascular exam: Present: RRR, +S1, +S2. Absent: diastolic murmur, gallop, rubs, systolic murmur - GI/Abdominal GI/Abdominal exam: Present: normal bowel sounds, soft, no peritoneal signs. Absent: distended, tenderness - Extremities Exam Extremities exam: Present: warm, radial pulses palpable and symmetrical. Absent : calf tenderness, cyanotic, pedal edema - Expanded Lower Extremities Exam Lower Leg exam: Present: laceration (Right lower extremity laceration/skin tear with yellow slough tissue present, no exudate), swelling - Neurological Exam Neurological exam: Present: CN II-XII intact, oriented X3, no focal deficits. Absent: pronater drift, facial droop, speech deficit - Skin Skin exam: Present: dry, intact - Patient Status Disposition: Home Health Service Condition: Fair Functional capacity at discharge: independent ambulation Overall status at discharge: patient is progressing back to baseline - Discharge Instructions Instructions: Anemia (GEN), Heart Failure (DC), Hypothyroidism (DC) Follow Up With: Zaira Spaulding CNP [Primary Care Provider] - 05/11/18 10:30 am () - Diet and Activity Activity: increase activity as tolerated, resume usual activities as tolerated Diet: advance to your usual diet
--- NOTE | 2018-05-06 14:14 | Physician Discharge Referral ---
Home Health/Hosp Referral Info Transfer to: Home Health Provider in Charge Post Discharge: PCP - Diagnosis (1) CHF exacerbation Priority: Primary Status: Resolved (2) Hypothyroidism Priority: Secondary Status: Chronic (3) Solitary right kidney Priority: Secondary Status: Chronic (4) Adenocarcinoma, lung Priority: Secondary Status: Acute (5) Leukocytosis Priority: Secondary Status: Resolved (6) Frequent falls Priority: Secondary Status: Acute (7) Protein calorie malnutrition Priority: Secondary Status: Acute (8) Wound of right lower extremity Priority: Secondary Status: Acute (9) Anemia Priority: Secondary Status: Acute (10) Dementia Priority: Secondary Status: Acute (11) Discharge planning issues Priority: Secondary Status: Acute (12) Hyponatremia Priority: Secondary Status: Acute (13) DVT prophylaxis Priority: Secondary Status: Acute - Respiratory Orders Smoking Cessation: Smoking cessation has been advised. For more information, call the [place] Tobacco Quit Line at 9-931-CXME-NOW. - Diet/Nutrition Diet/Nutrition Orders: Regular - Activity Activity Orders: Up ad graciela - Services Needed Following services are medically necessary services: Nursing, Home Health Aide, Physical Therapy, Occupational Therapy - Transfer Medications Prescriptions: Amitriptyline [Elavil] 25 mg PO HS 3 Days #3 tablet levoFLOXacin [Levaquin] 750 mg PO DAILY 5 Days #5 tablet Home Medications: Docusate Sodium [Colace] 100 mg PO BID #60 capsule 01/26/17 [Rx] Acetaminophen [Arthritis Pain Relief] 650 mg PO TID PRN 10/19/17 [History] Ascorbic Acid [Vitamin C] 1,000 mg PO DAILY 11/19/17 [History] Meloxicam [Mobic] 7.5 mg PO BID 02/22/18 [History] Levothyroxine [Synthroid] 125 mcg PO DAILY@0630 #90 tablet 03/04/18 [Rx] Dexamethasone [Decadron] 4 mg PO BID #36 tab 04/05/18 [Rx] OxyCODONE/APAP 5/325 [Percocet 5/325 MG] 1 each PO Q6HR PRN 30 Days #120 tablet 04/20/18 [Rx] diazePAM [Valium] 5 mg PO HS PRN 30 Days #30 tablet 04/20/18 [Rx] Amitriptyline [Elavil] 25 mg PO HS 3 Days #3 tablet 05/06/18 [Rx] levoFLOXacin [Levaquin] 750 mg PO DAILY 5 Days #5 tablet 05/06/18 [Rx] Allergies/Adverse Reactions: 3 Allergy/AdvReac Type Severity Reaction Status Date / Time Sulfa (Sulfonamide Allergy Rash Verified 04/08/18 10:48 Antibiotics) Certification: Further, I certify that my clinical findings support that this patient is homebound (i.e. absences from home require considerable and taxing effort and are for medical reasons or buddhist services or infrequently or short duration when for other reasons) because: Homebound Reason: Patient requires assistance of a person or device to safely leave home Attestation: My signature below is to certify that this patient is under my care and that I, or nurse practitioner, or a physician's assistant professor of communication working with me, has a face-to -face encounter with this patient.
--- NOTE | 2018-05-07 17:09 | Electrocardiograph Report ---
[place] [id number] Test Date: 2018-05-06 Pat Name: Kati Bennett Department: 113 Room: 3B11 Gender: F Personnel Quality Assurance Auditor: : [id number] Requested By: Wali Kaur Order Number: [id number] Reading MD: Jill Vega Measurements Intervals [place] Rate: 87 P: 69 KS: 160 QRS: 18 QRSD: 86 T: 75 QT: 358 QTc: 402 Interpretive Statements SINUS RHYTHM POSSIBLE LEFT ATRIAL ENLARGEMENT POSSIBLE LEFT VENTRICULAR HYPERTROPHY NONSPECIFIC T-WAVE ABNORMALITY Electronically Signed On 05-07-2018 17:07:59 EDT by Jill Vega
== END 2018-05-06 14:57 | disposition home health service (06) | DRG 292 ==
LOC: 3BNU 21:27 → EMEROOARM 21:27 → 3BNU 04-28 00:38
PROVIDERS: ADMIT Family Medicine; ATTEND Family Medicine